=== PATIENT | male | born 1960 | race African-American/Black ===

== ENCOUNTER 2016-03-05 08:50 | Inpatient (IN) | payer OTHER ==
--- NOTE | 2016-03-05 09:11 | HP ---
CIWA Score - CIWA Score Nausea/Vomitin-Mild Nausea/No Vomiting Muscle Tremors: 4-Moderate,w/Arms Extend Anxiety: 4-Mod. Anxious/Guarded Agitation: 1-Slight > Activity Paroxysmal Sweats: 1-Minimal Palms Moist Orientation: 0-Oriented Tacttile Disturbances: 1-Very Mild Itch/Numbness Auditory Disturbances: 1-Very Mild Visual Disturbances: 1-Very Mild Sensitivity Headache: 1-Very Mild CIWA-Ar Total Score: 15 Admission ROS BHS - HPI Chief Complaint: I messed up, I started drinking again, I want help. Allergies/Adverse Reactions: Allergies Allergy/AdvReac Type Severity Reaction Status Date / Time No Known Allergies Allergy Verified 01/24/16 10:54 History of Present Illness: 55 yo gentleman here for detox from alcohol - last her 01/24/16 but relapsed. Denies seizures. Interested in pursuing [facility] after detox. Lost seroquel bottles a week ago. Exam Limitations: Clinical Condition - Ebola screening Have you traveled outside of the country in the last 21 days: No Have you had contact with anyone from an Ebola affected area: No Do you have a fever: No - Review of Systems Constitutional: Loss of Appetite, Changes in sleep EENT: reports: No Symptoms Reported Respiratory: reports: No Symptoms reported Cardiac: reports: No Symptoms Reported GI: reports: Diarrhea, Nausea : reports: Frequency Musculoskeletal: reports: No Symptoms Reported Integumentary: reports: Other (right tibia scabbed abrasion due to falling a few days ago) Neuro: reports: Headache, Tremors Endocrine: reports: No Symptoms Reported Hematology: reports: No Symptoms Reported Psychiatric: reports: Judgement Intact, Mood/Affect Appropiate, Orientated x3, Anxious Other Systems: Reviewed and Negative Patient History - Patient Medical History Hx Anemia: No Hx Asthma: No Hx Chronic Obstructive Pulmonary Disease (COPD): No Hx Cancer: No Hx Cardiac Disorders: No Hx Congestive Heart Failure: No Hx Hypertension: No Hx Hypercholesterolemia: No Hx Pacemaker: No HX Cerebrovascular Accident: No Hx Seizures: No Hx Dementia: No Hx Diabetes: No Hx Gastrointestinal Disorders: No Hx Liver Disease: No Hx Genitourinary Disorders: No Hx Sexually Transmitted Disorders: No Hx Renal Disease (ESRD): No Hx Thyroid Disease: No Hx Human Immunodeficiency Virus (HIV): No Hx Hepatitis C: No Hx Depression: Yes (out of meds x 1 week) Hx Suicide Attempt: No Hx Bipolar Disorder: Yes Hx Schizophrenia: No - Patient Surgical History Past Surgical History: No Hx Neurologic Surgery: No Hx Cataract Extraction: No Hx Cardiac Surgery: No Hx Lung Surgery: No Hx Breast Surgery: No Hx Breast Biopsy: No Hx Abdominal Surgery: No Hx Appendectomy: No Hx Cholecystectomy: No Hx Genitourinary Surgery: No Hx Section: No Hx Orthopedic Surgery: No Hx Hysterectomy: No Anesthesia Reaction: No - PPD History Previous Implant?: Yes Documented Results: Negative w/proof Implanted On Prior [facility] Admission?: No Date: 05/18/15 Results: 0 mm PPD to be Administered?: No - Reproductive History Patient is a Female of Child Bearing Age (11 -55 yrs old): No (male) - Smoking Cessation Smoking history: Current every day smoker Have you smoked in the past 12 months: Yes Aproximately how many cigarettes per day: 5 Cigars Per Day: 0 Hx Chewing Tobacco Use: No Initiated information on smoking cessation: Yes 'Breaking Loose' booklet given: 03/05/16 (given on floor) - Substance & Tx. History Hx Alcohol Use: Yes Hx Substance Use: Yes Substance Use Type: Alcohol, Cocaine Hx Substance Use Treatment: Yes (detox, rehab) - Substances Abused Alcohol Route: Oral Frequency: Daily Amount used: six 40oz beers Age of first use: 16 Date of Last Use: 03/05/16 Cocaine Route: Inhalation Frequency: Daily Amount used: $50 Age of first use: 49 Date of Last Use: 03/05/16 Family Disease History - Family Disease History Family Disease History: Heart Disease: Father (ALCOHOL,), CA: Mother ( ALCOHOL,), Other: Father, Mother, Brother (ALCOHOL,DSA,, AIDS), Sister (, ANEURYSM, AIDS) Admission Physical Exam BHS - Vital Signs Vital Signs: BP 134/80 Pulse 67 Resp 18 Temp 98 - Physical General Appearance: Yes: Nourished, Appropriately Dressed, Mild Distress, Anxious HEENTM: Yes: EOMI, Normal ENT Inspection, Normocephalic, Normal Voice, Other ( no teeth) Respiratory: Yes: Normal Breath Sounds, No Respiratory Distress Neck: Yes: No masses,lesions,Nodules, Supple Breast: Yes: Breast Exam Deferred Cardiology: Yes: Regular Rhythm, Regular Rate Abdominal: Yes: Soft Genitourinary: Yes: Frequency Back: Yes: Normal Inspection Musculoskeletal: Yes: full range of Motion, Gait Steady Extremities: Yes: Normal Inspection, Normal Range of Motion Neurological: Yes: Fully Oriented, Alert, Motor Strength 5/5, Normal Mood/Affect , Normal Response Integumentary: Yes: Normal Color, Warm, Other (right tibia with 4 inch dry scabbed abrasion) Lymphatic: Yes: Within Normal Limits - Diagnostic (1) Alcohol dependence with uncomplicated withdrawal Current Visit: Yes Status: Chronic (2) Cocaine dependence Current Visit: Yes Status: Chronic Qualifiers: Substance use status: uncomplicated Qualified Code(s): F14.20 - Cocaine dependence, uncomplicated (3) Nicotine dependence Current Visit: Yes Status: Chronic Qualifiers: Nicotine product type: cigarettes Substance use status: uncomplicated Qualified Code(s): F17.210 - Nicotine dependence, cigarettes, uncomplicated Cleared for Admission S - Detox or Rehab [facility] Level of Care: Medically Managed Detox Regimen/Protocol: Librium S Breath Alcohol Content Breath Alcohol Content: 0
[2016-03-05 09:19] VITALS: BMI 24.4
[2016-03-05] MEDS ORDERED: guaiFENesin/D-METHORPHAN HB 10 ML UNIT-DOSE CUPS PO PRN (09:24)
[2016-03-05] MEDS ORDERED: chlordiazePOXIDE HCL 25 MG CAPSULE PO PRN (09:24)
[2016-03-05] MEDS ORDERED: MAGNESIUM HYDROX 2400MG/30ML ORAL SUSPENSION 30 ML CUP PO PRN (09:24)
[2016-03-05] MEDS ORDERED: ACETAMINOPHEN 325 MG TABLET (FP) PO PRN (09:24)
[2016-03-05] MEDS ORDERED: P-EPHED 60MG/TRIPROLIDI 2.5MG TABLET PO PRN (09:24)
[2016-03-05] MEDS ORDERED: IBUPROFEN 400 MG TABLET (FP) PO PRN (09:24)
[2016-03-05] MEDS ORDERED: MAG HYDROX/AL HYDROX/SIMETH 30 ML UNIT-DOSE CUP PO PRN (09:24)
[2016-03-05] MEDS ORDERED: MAGNESIUM CITRATE 300 ML BOTTLE PO PRN (09:24)
[2016-03-05] MEDS ORDERED: MENTHOL/PHENOL 1 EACH UD MM PRN (09:24)
[2016-03-05] MEDS ORDERED: LOPERAMIDE HCL 2 MG CAPSULE PO PRN (09:24)
[2016-03-05] MEDS ORDERED: hydrOXYzine PAMOATE 50 MG CAPSULE (FP) PO PRN (09:24)
[2016-03-05] MEDS ORDERED: chlordiazePOXIDE HCL 25 MG CAPSULE PO ONE (10:30)
[2016-03-05] MEDS: chlordiazePOXIDE HCL 25 MG CAPSULE PO SCH ×3 (11:35→22:09)
[2016-03-05] MEDS: PRENATAL VITAMINS W/ FOLIC ACID TABLET (FP) PO SCH (11:35)
[2016-03-05 13:38] LABS: URINE APPEARANCE CLEAR; URINE BILIRUBIN NEGATIVE (NEGATIVE); URINE COLOR LTYELLOW; URINE GLUCOSE (UA) NEGATIVE (NEGATIVE); URINE KETONE NEGATIVE (NEGATIVE); URINE LEUK ESTERASE NEGATIVE (NEGATIVE); URINE NITRITE NEGATIVE (NEGATIVE); URINE PROTEIN NEGATIVE (NEGATIVE); URINE UROBILINOGEN NEGATIVE E.U./dl (0.2-1.0)
[2016-03-05 13:43] LABS: URINE BLOOD 1+ (NEGATIVE)
[2016-03-05 13:47] LABS: URINE MUCUS RARE; URINE RBC <1 /hpf (0-3); URINE WBC 2 /hpf (3-5)
[2016-03-05] MEDS ORDERED: diphenhydrAMINE HCL 50 MG CAPSULE PO PRN (22:00)
[2016-03-05] MEDS: THIAMINE HCL 100 MG TABLET (FP) PO SCH (22:09)
[2016-03-06] MEDS: chlordiazePOXIDE HCL 25 MG CAPSULE PO SCH ×4 (05:48→22:13)
--- NOTE | 2016-03-06 09:46 | EKG ---
Test Reason : Blood Pressure : / mmHG Vent. Rate : 066 BPM Atrial Rate : 066 BPM P-R Int : 148 ms QRS Dur : 102 ms QT Int : 386 ms P-R-T Axes : 074 082 062 degrees QTc Int : 404 ms SINUS RHYTHM WITH PREMATURE ATRIAL COMPLEXES IN A PATTERN OF BIGEMINY NO PREVIOUS ECGS AVAILABLE Confirmed by CAMRYN DICKERSON MD ([id number]) on 03/06/2016 9:46:36 AM Referred By: Confirmed By:CAMRYN DICKERSON MD
[2016-03-06] MEDS: PRENATAL VITAMINS W/ FOLIC ACID TABLET (FP) PO SCH (10:07)
[2016-03-06 10:20] LABS: MCHC 31.4 g/dl (32.0-35.9); MEAN CELL VOLUME 82.9 fl (80-96); PLATELET COUNT 264 K/MM3 (134-434); RDW 15.1 % (11.9-15.9); WHITE BLOOD COUNT 5.6 K/mm3 (4.0-10.0)
[2016-03-06 10:49] LABS: ALK PHOS 67 U/L (45-117); ANION GAP 11 (8-16); BILIRUBIN,TOTAL 0.7 mg/dL (0.2-1.0); CALCIUM 9.1 mg/dL (8.5-10.1); CO2 26 mmol/L (21-32); GLUCOSE,RANDOM 94 mg/dL (74-106); SGOT/AST 11 U/L (15-37); SGPT/ALT 16 U/L (12-78); TOT PROT 7.3 g/dl (6.4-8.2)
[2016-03-06 12:26] LABS: HIV 1 & 2 AB NEGATIVE; HIV 1 AGp24 NEGATIVE
--- NOTE | 2016-03-06 12:48 | PN ---
S CIWA - CIWA Score Nausea/Vomitin-Mild Nausea/No Vomiting Muscle Tremors: 4-Moderate,w/Arms Extend Anxiety: 4-Mod. Anxious/Guarded Agitation: 3 Paroxysmal Sweats: No Perspiration Orientation: 0-Oriented Tacttile Disturbances: 1-Very Mild Itch/Numbness Auditory Disturbances: 0-None Visual Disturbances: 0-None Headache: 2-Mild CIWA-Ar Total Score: 15 S Progress Note (SOAP) Subjective: Anxious, restless, interrupted sleep, nausea, sweating (wants seroquel 100mg for sleep, agrees to take ambien 10mg tonight until seen by psychiatrist) Objective: 03/06/16 12:44 Last Vital Signs Temp Pulse Resp BP Pulse Ox 96.7 F L 61 18 145/87 03/06/16 09:39 03/06/16 09:39 03/06/16 09:39 03/06/16 09:39 Laboratory Tests 03/05/16 03/06/16 03/06/16 10:10 07:20 07:20 WBC 5.6 RBC 5.08 Hgb 13.2 D Hct 42.1 MCV 82.9 MCHC 31.4 L RDW 15.1 Plt Count 264 MPV 9.0 Sodium 141 Potassium 3.8 Chloride 104 Carbon Dioxide 26 Anion Gap 11 BUN 9 D Creatinine 1.0 Creat Clearance w eGFR > 60 Random Glucose 94 Calcium 9.1 Total Bilirubin 0.7 D AST 11 L D ALT 16 Alkaline Phosphatase 67 Total Protein 7.3 Albumin 4.0 D Urine Color Ltyellow Urine Appearance Clear Urine pH 5.0 Ur Specific [place] 1.009 Urine Protein Negative Urine Glucose (UA) Negative Urine Ketones Negative Urine Blood 1+ H Urine Nitrite Negative Urine Bilirubin Negative Urine Urobilinogen Negative Ur Leukocyte Esterase Negative Urine RBC <1 Urine WBC 2 Ur Epithelial Cells Rare Urine Mucus Rare HIV 1&2 Antibody Screen HIV P24 Antigen 03/06/16 07:20 WBC RBC Hgb Hct MCV MCHC RDW Plt Count MPV Sodium Potassium Chloride Carbon Dioxide Anion Gap BUN Creatinine Creat Clearance w eGFR Random Glucose Calcium Total Bilirubin AST ALT Alkaline Phosphatase Total Protein Albumin Urine Color Urine Appearance Urine pH Ur Specific [place] Urine Protein Urine Glucose (UA) Urine Ketones Urine Blood Urine Nitrite Urine Bilirubin Urine Urobilinogen Ur Leukocyte Esterase Urine RBC Urine WBC Ur Epithelial Cells Urine Mucus HIV 1&2 Antibody Screen Negative HIV P24 Antigen Negative Labs noted: UA 1+ blood Assessment: 03/06/16 12:46 Withdrawal symptoms Interrupted sleep Insomnia: patient request seroquel 100mg qhs Noted with Hematuria Plan: Continue detox Ambien 10mg x 1 dose tonight for interrupted sleep Insomnia: psychiatry consult for seroquel 100mg Hematuria: encouraged to drink lots of water, repeat UA
[2016-03-06] MEDS ORDERED: ZOLPIDEM TARTRATE 10 MG TABLET (PARK CARE ONLY) PO ONE (22:00)
[2016-03-06] MEDS: THIAMINE HCL 100 MG TABLET (FP) PO SCH (22:13)
[2016-03-07] MEDS: chlordiazePOXIDE HCL 25 MG CAPSULE PO SCH (05:27)
[2016-03-07] MEDS: PRENATAL VITAMINS W/ FOLIC ACID TABLET (FP) PO SCH (10:08)
[2016-03-07] MEDS: chlordiazePOXIDE 5 MG CAPSULE PO SCH ×3 (10:08→22:26)
--- NOTE | 2016-03-07 11:02 | PN ---
S CIWA - CIWA Score Nausea/Vomitin-No Nausea/No Vomiting Muscle Tremors: 3 Anxiety: 4-Mod. Anxious/Guarded Agitation: 3 Paroxysmal Sweats: 3 Orientation: 0-Oriented Tacttile Disturbances: 0-None Auditory Disturbances: 0-None Visual Disturbances: 0-None Headache: 0-None Present CIWA-Ar Total Score: 13 BHS Progress Note (SOAP) Subjective: ANXIETY,TREMORS,SWEATING,INTERRUPTED SLEEP,RESTLESS Objective: 03/07/16 11:01 Vital Signs - 8 hr 03/07/16 03/07/16 05:59 09:33 Temperature 96.1 F L 96.7 F L Pulse Rate 54 L 62 Respiratory 18 18 Rate Blood Pressure 133/87 135/88 Laboratory Tests 03/05/16 03/06/16 03/06/16 10:10 07:20 07:20 WBC 5.6 RBC 5.08 Hgb 13.2 D Hct 42.1 MCV 82.9 MCHC 31.4 L RDW 15.1 Plt Count 264 MPV 9.0 Sodium 141 Potassium 3.8 Chloride 104 Carbon Dioxide 26 Anion Gap 11 BUN 9 D Creatinine 1.0 Creat Clearance w eGFR > 60 Random Glucose 94 Calcium 9.1 Total Bilirubin 0.7 D AST 11 L D ALT 16 Alkaline Phosphatase 67 Total Protein 7.3 Albumin 4.0 D Urine Color Ltyellow Urine Appearance Clear Urine pH 5.0 Ur Specific [place] 1.009 Urine Protein Negative Urine Glucose (UA) Negative Urine Ketones Negative Urine Blood 1+ H Urine Nitrite Negative Urine Bilirubin Negative Urine Urobilinogen Negative Ur Leukocyte Esterase Negative Urine RBC <1 Urine WBC 2 Ur Epithelial Cells Rare Urine Mucus Rare RPR Titer HIV 1&2 Antibody Screen HIV P24 Antigen 03/06/16 03/06/16 07:20 07:20 WBC RBC Hgb Hct MCV MCHC RDW Plt Count MPV Sodium Potassium Chloride Carbon Dioxide Anion Gap BUN Creatinine Creat Clearance w eGFR Random Glucose Calcium Total Bilirubin AST ALT Alkaline Phosphatase Total Protein Albumin Urine Color Urine Appearance Urine pH Ur Specific [place] Urine Protein Urine Glucose (UA) Urine Ketones Urine Blood Urine Nitrite Urine Bilirubin Urine Urobilinogen Ur Leukocyte Esterase Urine RBC Urine WBC Ur Epithelial Cells Urine Mucus RPR Titer Nonreactive HIV 1&2 Antibody Screen Negative HIV P24 Antigen Negative LABS NOTED Assessment: 03/07/16 11:02 WITHDRAWAL SX. Plan: CONTINUE DETOX
--- NOTE | 2016-03-07 14:12 | CONSULT ---
[facility] Psychiatric Consult - Data Date of interview: 03/07/16 Admission source: [facility] Identifying data: New admission to [facility] for this 55 y/o AA male seeking detox treatment for alcohol and cocaine dependence.Patient is single,a father of two,homeless,unemployed and deprived of any source of income. Substance Abuse History: - Smoking Cessation. Smoking history: Current every day smoker. Have you smoked in the past 12 months: Yes. Aproximately how many cigarettes per day: 5. Cigars Per Day: 0. Hx Chewing Tobacco Use: No. Initiated information on smoking cessation: Yes. 'Breaking Loose' booklet given : 03/05/16 (given on floor). - Substance & Tx. History. Hx Alcohol Use: Yes. Hx Substance Use: Yes. Substance Use Type: Alcohol, Cocaine. Hx Substance Use Treatment: Yes (detox, rehab). - Substances Abused. Alcohol. Route: Oral. Frequency: Daily. Amount used: six 40oz beers. Age of first use: 16. Date of Last Use: 03/05/16. Cocaine. Route: Inhalation. Frequency: Daily. Amount used: $50. Age of first use: 49. Date of Last Use: 03/05/16. Discussed with patient in this interview.He aknowleges this pattern of substance use. Medical History: Significant for hypertension and abdominal hernia. Psychiatric History: No reported history of psychiatric hospitalizations.No OPD care provider.Mr Argueta states that he is against " taking psychiatric " medications.Patient made it clear that he " does not want anything from here " with the exception of detox medications.No history of suicide attempts.Patient is a hostile,marginally and irritable historian. Physical/Sexual Abuse/Trauma History: No history. Mental Status Exam - Mental Status Exam Alert and Oriented to: Time, Place, Person Cognitive Function: Good Patient Appearance: Well Groomed Mood: Irritable Affect: Normal Range Patient Behavior: Fatigued, Guarded, Cooperative (superficially) Speech Pattern: Clear Voice Loudness: Normal Thought Process: Goal Oriented Thought Disorder: Not Present Hallucinations: Denies Suicidal Ideation: Denies Homicidal Ideation: Denies Insight/Judgement: Poor Sleep: Well Appetite: Good Muscle strength/Tone: Normal Gait/Station: Normal Psychiatric Findings - Problem List (Christine 1, 2,3) (1) Alcohol dependence with uncomplicated withdrawal Current Visit: Yes Status: Acute (2) Cocaine dependence Current Visit: Yes Status: Acute Qualifiers: Substance use status: uncomplicated Qualified Code(s): F14.20 - Cocaine dependence, uncomplicated (3) Nicotine dependence Current Visit: Yes Status: Acute Qualifiers: Nicotine product type: cigarettes Substance use status: uncomplicated Qualified Code(s): F17.210 - Nicotine dependence, cigarettes, uncomplicated (4) Drug-induced mood disorder Current Visit: Yes Status: Chronic (5) History of hypertension Current Visit: No Status: Suspected - Initial Treatment Plan Initial Treatment Plan: Psychoeducation.Detoxification.Observation.
--- NOTE | 2016-03-07 14:13 | CONSULT ---
[facility] Psychiatric Consult - Data Date of interview: 03/07/16 Identifying data: Readmission to [facility] for this 54 y/o AA male seeking detox treatment for alcohol and cocaine dependence.Patient is single,a father of two (lost one daughter),homeless,unemployed and deprived of any source of income. Psychiatric History: Patient denies history of psychiatric hospitalizations.No current affiliation with a OPD care provider.Mr Argueta gets scripts for seroquel from detox/rehab facilities.He reports chronic insomnia.No history of suicide attempts.
[2016-03-07 17:26] VITALS: BP 115/58; PULSE 59; TEMP 97.5
[2016-03-07] MEDS ORDERED: ZOLPIDEM TARTRATE 10 MG TABLET (PARK CARE ONLY) PO PRN (22:00)
[2016-03-07] MEDS: THIAMINE HCL 100 MG TABLET (FP) PO SCH (22:26)
--- NOTE | 2016-03-07 23:46 | DS ---
[facility] Detox Discharge Summary Admission Date: 03/05/16 Discharge Date: 03/07/16 - History Present History: Alcohol Dependence Additional Comments: patient insists to leave the unit without apparent reason - Physical Exam Results Vital Signs: Vital Signs Temperature 97.5 F L 03/07/16 17:25 Pulse Rate 59 L 03/07/16 17:25 Respiratory Rate 18 03/07/16 17:25 Blood Pressure 115/58 03/07/16 17:25 O2 Sat by Pulse Oximetry (%) Pertinent Admission Physical Exam Findings: withdrawal sx Laboratory Last Values WBC 5.6 K/mm3 (4.0-10.0) 03/06/16 07:20 RBC 5.08 M/mm3 (4.00-5.60) 03/06/16 07:20 Hgb 13.2 GM/dL (11.7-16.9) D 03/06/16 07:20 Hct 42.1 % (35.4-49) 03/06/16 07:20 MCV 82.9 fl (80-96) 03/06/16 07:20 MCHC 31.4 g/dl (32.0-35.9) L 03/06/16 07:20 RDW 15.1 % (11.9-15.9) 03/06/16 07:20 Plt Count 264 K/MM3 (134-434) 03/06/16 07:20 MPV 9.0 fl (7.5-11.1) 03/06/16 07:20 Sodium 141 mmol/L (136-145) 03/06/16 07:20 Potassium 3.8 mmol/L (3.5-5.1) 03/06/16 07:20 Chloride 104 mmol/L (98-107) 03/06/16 07:20 Carbon Dioxide 26 mmol/L (21-32) 03/06/16 07:20 Anion Gap 11 (8-16) 03/06/16 07:20 BUN 9 mg/dL (7-18) D 03/06/16 07:20 Creatinine 1.0 mg/dL (0.7-1.3) 03/06/16 07:20 Creat Clearance w eGFR > 60 (>60) 03/06/16 07:20 Random Glucose 94 mg/dL (74-106) 03/06/16 07:20 Calcium 9.1 mg/dL (8.5-10.1) 03/06/16 07:20 Total Bilirubin 0.7 mg/dL (0.2-1.0) D 03/06/16 07:20 AST 11 U/L (15-37) L D 03/06/16 07:20 ALT 16 U/L (12-78) 03/06/16 07:20 Alkaline Phosphatase 67 U/L (45-117) 03/06/16 07:20 Total Protein 7.3 g/dl (6.4-8.2) 03/06/16 07:20 Albumin 4.0 g/dl (3.4-5.0) D 03/06/16 07:20 Urine Color Ltyellow 03/05/16 10:10 Urine Appearance Clear 03/05/16 10:10 Urine pH 5.0 (5.0-8.0) 03/05/16 10:10 Ur Specific [place] 1.009 (1.001-1.035) 03/05/16 10:10 Urine Protein Negative (NEGATIVE) 03/05/16 10:10 Urine Glucose (UA) Negative (NEGATIVE) 03/05/16 10:10 Urine Ketones Negative (NEGATIVE) 03/05/16 10:10 Urine Blood 1+ (NEGATIVE) H 03/05/16 10:10 Urine Nitrite Negative (NEGATIVE) 03/05/16 10:10 Urine Bilirubin Negative (NEGATIVE) 03/05/16 10:10 Urine Urobilinogen Negative E.U./dl (0.2-1.0) 03/05/16 10:10 Ur Leukocyte Esterase Negative (NEGATIVE) 03/05/16 10:10 Urine RBC <1 /hpf (0-3) 03/05/16 10:10 Urine WBC 2 /hpf (3-5) 03/05/16 10:10 Ur Epithelial Cells Rare /hpf (FEW) 03/05/16 10:10 Urine Mucus Rare 03/05/16 10:10 RPR Titer Nonreactive (NONREACTIVE) 03/06/16 07:20 HIV 1&2 Antibody Screen Negative 03/06/16 07:20 HIV P24 Antigen Negative 03/06/16 07:20 lab noted - Treatment Hospital Course: Detox Protocol Followed, Responded well - Medication Discharge Medications: Ambulatory Orders Quetiapine Fumarate [Seroquel] 100 tab PO HS #30 tablet 10/05/15 - Diagnosis (1) Alcohol dependence with uncomplicated withdrawal Status: Acute (2) Nicotine dependence Status: Acute Qualifiers: Nicotine product type: cigarettes Substance use status: in withdrawal Qualified Code(s): F17.213 - Nicotine dependence, cigarettes, with withdrawal (3) Weight loss Status: Acute - AMA Did Patient Leave Against Medical Advice: Yes
[2016-03-08] MEDS ORDERED: chlordiazePOXIDE HCL 10 MG CAPSULE PO SCH (11:00)
== END 2016-03-07 23:18 | disposition left against medical advice (07) | DRG 770 ==
LOC: YASAS 08:50 → Y3N 10:01
PROVIDERS: ADMIT Internal Medicine; ATTEND Internal Medicine
PROC: HZ2ZZZZ Detoxification Services for Substance Abuse Treatment (ICD-10-PCS; principal; 2016-03-07)
DX: F10.230 Alcohol dependence with withdrawal, uncomplicated (principal); F14.20 Cocaine dependence, uncomplicated; F17.213 Nicotine dependence, cigarettes, with withdrawal; F19.24 Other psychoactive substance dependence with psychoactive substance-induced mood disorder; R63.4 Abnormal weight loss; Z68.24 Body mass index [BMI] 24.0-24.9, adult
CPT/HCPCS: 36415; 80053; 81003; 81015; 85027; 86593; 87389; 93005; 93010

== ENCOUNTER 2016-06-01 11:58 | Inpatient (IN) | payer OTHER ==
[2016-06-01 17:38] VITALS: BMI 23.3
--- NOTE | 2016-06-01 19:39 | HP ---
CIWA Score - CIWA Score Nausea/Vomitin-Mild Nausea/No Vomiting Muscle Tremors: 4-Moderate,w/Arms Extend Anxiety: 4-Mod. Anxious/Guarded Agitation: 4-Moderately Restless Paroxysmal Sweats: 1-Minimal Palms Moist Orientation: 1-Uncertain about Date Tacttile Disturbances: 0-None Auditory Disturbances: 0-None Visual Disturbances: 0-None Headache: 1-Very Mild CIWA-Ar Total Score: 16 Admission ROS BHS - HPI Chief Complaint: withdrawal sx Allergies/Adverse Reactions: Allergies Allergy/AdvReac Type Severity Reaction Status Date / Time No Known Allergies Allergy Verified 06/02/16 00:59 History of Present Illness: 55 years old male with long history of alcohol cocaine nicotine dependence has umbilical hernia x 15 years, denies consequence, weight loss, has bipolar ii is admitted to detox Exam Limitations: No Limitations - Ebola screening Have you traveled outside of the country in the last 21 days: No Have you had contact with anyone from an Ebola affected area: No Have you been sick,other than usual withdrawal symptoms: No Do you have a fever: No - Review of Systems Constitutional: Chills, Loss of Appetite, Changes in sleep, Unintentional Wgt. Loss, Unexplained wgt Loss EENT: reports: Dental Problems (upper and lower denture missing) Respiratory: reports: No Symptoms reported Cardiac: reports: No Symptoms Reported GI: reports: Nausea, Poor Appetite, Poor Fluid Intake, Abdominal cramping : reports: No Symptoms Reported Musculoskeletal: reports: Back Pain (long weight lifting) Integumentary: reports: No Symptoms Reported Neuro: reports: Tremors Endocrine: reports: No Symptoms Reported Hematology: reports: No Symptoms Reported Psychiatric: reports: Judgement Intact, Depressed Other Systems: Reviewed and Negative Patient History - Patient Medical History Hx Anemia: No Hx Asthma: No Hx Chronic Obstructive Pulmonary Disease (COPD): No Hx Cancer: No Hx Cardiac Disorders: No Hx Congestive Heart Failure: No Hx Hypertension: No Hx Hypercholesterolemia: No Hx Pacemaker: No HX Cerebrovascular Accident: No Hx Seizures: No Hx Dementia: No Hx Diabetes: No Hx Gastrointestinal Disorders: No Hx Liver Disease: No Hx Genitourinary Disorders: No Hx Sexually Transmitted Disorders: No Hx Renal Disease (ESRD): No Hx Thyroid Disease: No Hx Human Immunodeficiency Virus (HIV): No Hx Hepatitis C: No Hx Depression: No Hx Suicide Attempt: No Hx Bipolar Disorder: Yes Hx Schizophrenia: No - Patient Surgical History Past Surgical History: No Hx Neurologic Surgery: No Hx Cataract Extraction: No Hx Cardiac Surgery: No Hx Lung Surgery: No Hx Breast Surgery: No Hx Breast Biopsy: No Hx Abdominal Surgery: No Hx Appendectomy: No Hx Cholecystectomy: No Hx Genitourinary Surgery: No Hx Orthopedic Surgery: No - PPD History Previous Implant?: Yes Documented Results: Negative w/o proof [facility]ed [facility]mission?: Yes Date: 05/18/15 Results: 0 mm PPD to be Administered?: Yes - Smoking Cessation Smoking history: Current every day smoker Have you smoked in the past 12 months: Yes Aproximately how many cigarettes per day: 5 Cigars Per Day: 0 Hx Chewing Tobacco Use: No Initiated information on smoking cessation: Yes 'Breaking Loose' booklet given: 06/01/16 - Substance & Tx. History Hx Alcohol Use: Yes Hx Substance Use: No Substance Use Type: Alcohol, Cocaine Hx Substance Use Treatment: Yes - Substances Abused Alcohol Route: Oral Frequency: Daily Amount used: Beer 4x 40oz, Vodka 1 pint Age of first use: 15 Date of Last Use: 06/01/16 Cocaine Route: Inhalation Frequency: Daily Amount used: $30- $50 Age of first use: 49 Date of Last Use: 06/01/16 Family Disease History - Family Disease History Family Disease History: Heart Disease: Father (ALCOHOL,), CA: Mother ( ALCOHOL,), Other: Father, Mother, Brother (ALCOHOL,DSA,, AIDS), Sister (, ANEURYSM, AIDS) Admission Physical Exam S - Vital Signs Vital Signs: Vital Signs - 24 hr 06/01/16 17:36 Temperature 97.8 F Pulse Rate 77 Respiratory 18 Rate Blood Pressure 130/82 - Physical General Appearance: Yes: Appropriately Dressed, Mild Distress, Moderate Distress , Thin, Tremorous, Irritable, Sweating, Anxious HEENTM: Yes: Hearing grossly Normal, Normal ENT Inspection, Normocephalic, Normal Voice Respiratory: Yes: Chest Non-Tender, Lungs Clear, Normal Breath Sounds, No Respiratory Distress, No Accessory Muscle Use Neck: Yes: Supple, Trachea in good position Breast: Yes: Breasts Symetrical Cardiology: Yes: Regular Rhythm, Regular Rate, S1, S2 Abdominal: Yes: Non Tender, Soft Genitourinary: Yes: Within Normal Limits Back: Yes: Normal Inspection Musculoskeletal: Yes: full range of Motion, Gait Steady, Back pain Extremities: Yes: Normal Inspection, Normal Range of Motion, Non-Tender, Tremors Neurological: Yes: Alert, Motor Strength 5/5, Normal Response, Depressed Affect Integumentary: Yes: Warm Lymphatic: Yes: Within Normal Limits - Diagnostic (1) Alcohol dependence with uncomplicated withdrawal Current Visit: Yes Status: Acute (2) Nicotine dependence Current Visit: Yes Status: Acute Qualifiers: Nicotine product type: cigarettes Substance use status: in withdrawal Qualified Code(s): F17.213 - Nicotine dependence, cigarettes, with withdrawal (3) Weight loss Current Visit: Yes Status: Acute (4) Bipolar II disorder Current Visit: Yes Status: Suspected Cleared for Admission [facility] - Detox or Rehab [facility] Level of Care: Medically Managed Detox Regimen/Protocol: Librium [facility] Breath Alcohol Content Breath Alcohol Content: 0 Urine Drug Screen - Results Drug Screen Negative: No Urine Drug Screen Results: HERMINIO-Cocaine, BZO-Benzodiazepines
[2016-06-01] MEDS ORDERED: P-EPHED 60MG/TRIPROLIDI 2.5MG TABLET PO PRN (19:49)
[2016-06-01] MEDS ORDERED: MENTHOL/PHENOL 1 EACH UD MM PRN (19:49)
[2016-06-01] MEDS ORDERED: guaiFENesin/D-METHORPHAN HB 10 ML UNIT-DOSE CUPS PO PRN (19:49)
[2016-06-01] MEDS ORDERED: NICOTINE 14 MG/24 HOURS TOPICAL PATCH TD PRN (19:49)
[2016-06-01] MEDS ORDERED: LOPERAMIDE HCL 2 MG CAPSULE PO PRN (19:49)
[2016-06-01] MEDS ORDERED: MAGNESIUM CITRATE 300 ML BOTTLE PO PRN (19:49)
[2016-06-01] MEDS ORDERED: MAG HYDROX/AL HYDROX/SIMETH 30 ML UNIT-DOSE CUP PO PRN (19:49)
[2016-06-01] MEDS ORDERED: MAGNESIUM HYDROX 2400MG/30ML ORAL SUSPENSION 30 ML CUP PO PRN (19:49)
[2016-06-01] MEDS ORDERED: NICOTINE POLACRILEX 2 MG GUM BC PRN (19:49)
[2016-06-01] MEDS ORDERED: ACETAMINOPHEN 325 MG TABLET (FP) PO PRN (19:49)
[2016-06-01] MEDS ORDERED: IBUPROFEN 400 MG TABLET (FP) PO PRN (19:49)
[2016-06-01] MEDS ORDERED: chlordiazePOXIDE HCL 25 MG CAPSULE PO PRN (19:49)
[2016-06-01] MEDS ORDERED: hydrOXYzine PAMOATE 50 MG CAPSULE (FP) PO PRN (19:49)
[2016-06-01 21:36] LABS: URINE APPEARANCE CLEAR; URINE BILIRUBIN NEGATIVE (NEGATIVE); URINE COLOR YELLOW; URINE GLUCOSE (UA) NEGATIVE (NEGATIVE); URINE KETONE NEGATIVE (NEGATIVE); URINE NITRITE NEGATIVE (NEGATIVE); URINE PROTEIN NEGATIVE (NEGATIVE); URINE UROBILINOGEN NEGATIVE E.U./dl (0.2-1.0)
[2016-06-01 21:40] LABS: URINE BLOOD 1+ (NEGATIVE); URINE LEUK ESTERASE 1+ (NEGATIVE)
[2016-06-01 22:04] LABS: URINE MUCUS RARE; URINE RBC 2 /hpf (0-3); URINE WBC 11 /hpf (3-5)
[2016-06-01] MEDS: THIAMINE HCL 100 MG TABLET (FP) PO SCH (22:13)
[2016-06-01] MEDS: chlordiazePOXIDE HCL 25 MG CAPSULE PO SCH (22:15)
[2016-06-01] MEDS: diphenhydrAMINE HCL 50 MG CAPSULE PO PRN (22:15)
[2016-06-02] MEDS: chlordiazePOXIDE HCL 25 MG CAPSULE PO SCH ×4 (05:50→22:25)
--- NOTE | 2016-06-02 09:32 | CONSULT ---
[facility] Psychiatric Consult - Data Date of interview: 06/02/16 Admission source: [facility] Identifying data: This is 55 years old male with no psychiatric hospitalization history intoxicated with: Alcohol, Cocaine and Nicotine Substance Abuse History: Denies Medical History: Weight loss, Syncope history, HTN, Psychiatric History: PATIENT REPROTS HISTORY OF BIPOLAR DISORDER, DENIES PSYCHIATRIOC HOSPITALIZATION HIOSTORY, REPORTS TAKING PRIOR TO ADMISSION: SEROQUEL 100MG PO QHS Physical/Sexual Abuse/Trauma History: Denies Additional Comment: SEROQUEL 100MG PO QHS Mental Status Exam - Mental Status Exam Alert and Oriented to: Person Patient Appearance: Unkempt Mood: Sad Affect: Flat Patient Behavior: Sedated Speech Pattern: Delayed Voice Loudness: Mildly Soft/Quiet Thought Process: Circumstantial Thought Disorder: Being Controlled Hallucinations: Denies Suicidal Ideation: Denies Homicidal Ideation: Denies Insight/Judgement: Fair Sleep: Difficulty falling asleep Appetite: Weight loss Muscle strength/Tone: Mild Hypotonicity Gait/Station: Shuffling Additional Comments: SEROQUEL 100MG PO QHS Psychiatric Findings - Problem List ([place] 1, 2,3) (1) Alcohol dependence with uncomplicated withdrawal Current Visit: Yes Status: Acute (2) Nicotine dependence Current Visit: Yes Status: Acute Qualifiers: Nicotine product type: cigarettes Substance use status: in withdrawal Qualified Code(s): F17.213 - Nicotine dependence, cigarettes, with withdrawal (3) Weight loss Current Visit: Yes Status: Acute (4) Cocaine dependence Current Visit: No Status: Acute Qualifiers: Substance use status: uncomplicated Qualified Code(s): F14.20 - Cocaine dependence, uncomplicated (5) Substance or medication-induced sleep disorder, insomnia type Current Visit: No Status: Acute (6) Drug-induced mood disorder Current Visit: No Status: Chronic (7) Bipolar disorder Current Visit: No Status: Suspected Comment: Historical diagnosis. - Initial Treatment Plan Initial Treatment Plan: SEROQUEL 100MG PO QHS
[2016-06-02 10:18] LABS: MCHC 31.6 g/dl (32.0-35.9); MEAN CELL VOLUME 82.3 fl (80-96); MEAN PLT VOLUME 8.5 fl (7.5-11.1); PLATELET COUNT 350 K/MM3 (134-434); RDW 13.9 % (11.9-15.9); WHITE BLOOD COUNT 4.6 K/mm3 (4.0-10.0)
[2016-06-02] MEDS: PRENATAL VITAMINS W/ FOLIC ACID TABLET (FP) PO SCH (10:19)
[2016-06-02 10:31] LABS: ALBUMIN 3.2 g/dl (3.4-5.0); ANION GAP 9 (8-16); CALCIUM 8.8 mg/dL (8.5-10.1); CO2 28 mmol/L (21-32); COCKROFT - GAULT 74.08; GLUCOSE,RANDOM 81 mg/dL (74-106); SGOT/AST 19 U/L (15-37); SGPT/ALT 22 U/L (12-78)
[2016-06-02 10:32] LABS: ALK PHOS 66 U/L (45-117); BILIRUBIN,TOTAL 0.7 mg/dL (0.2-1.0); TOT PROT 6.5 g/dl (6.4-8.2)
[2016-06-02 11:16] LABS: HIV 1 & 2 AB NEGATIVE; HIV 1 AGp24 NEGATIVE
--- NOTE | 2016-06-02 12:22 | PN ---
S CIWA - CIWA Score Nausea/Vomitin-Mild Nausea/No Vomiting Muscle Tremors: 4-Moderate,w/Arms Extend Anxiety: 3 Agitation: 3 Paroxysmal Sweats: 3 Orientation: 0-Oriented Tacttile Disturbances: 0-None Auditory Disturbances: 0-None Visual Disturbances: 0-None Headache: 0-None Present CIWA-Ar Total Score: 14 BHS Progress Note (SOAP) Subjective: Anxiety,tremors,sweating,interrupted sleep,restless,body aches Objective: 06/02/16 12:21 Vital Signs - 8 hr 06/02/16 06/02/16 06:33 09:16 Temperature 97.7 F 96.8 F L Pulse Rate 66 68 Respiratory 18 18 Rate Blood Pressure 141/99 149/93 Laboratory Tests 06/01/16 06/02/16 06/02/16 21:20 07:00 07:00 WBC 4.6 RBC 4.55 Hgb 11.8 D Hct 37.5 MCV 82.3 MCHC 31.6 L RDW 13.9 Plt Count 350 D MPV 8.5 Sodium Potassium Chloride Carbon Dioxide Anion Gap BUN Creatinine Creat Clearance w eGFR Random Glucose Calcium Total Bilirubin AST ALT Alkaline Phosphatase Total Protein Albumin Urine Color Yellow Urine Appearance Clear Urine pH 5.0 Ur Specific [place] 1.026 Urine Protein Negative Urine Glucose (UA) Negative Urine Ketones Negative Urine Blood 1+ H Urine Nitrite Negative Urine Bilirubin Negative Urine Urobilinogen Negative Ur Leukocyte Esterase 1+ H Urine RBC 2 Urine WBC 11 Ur Epithelial Cells Rare Urine Mucus Rare RPR Titer HIV 1&2 Antibody Screen Negative HIV P24 Antigen Negative 06/02/16 06/02/16 07:00 07:00 WBC RBC Hgb Hct MCV MCHC RDW Plt Count MPV Sodium 144 Potassium 4.7 D Chloride 107 Carbon Dioxide 28 Anion Gap 9 BUN 20 H D Creatinine 1.0 Creat Clearance w eGFR > 60 Random Glucose 81 Calcium 8.8 Total Bilirubin 0.7 AST 19 D ALT 22 D Alkaline Phosphatase 66 Total Protein 6.5 Albumin 3.2 L Urine Color Urine Appearance Urine pH Ur Specific [place] Urine Protein Urine Glucose (UA) Urine Ketones Urine Blood Urine Nitrite Urine Bilirubin Urine Urobilinogen Ur Leukocyte Esterase Urine RBC Urine WBC Ur Epithelial Cells Urine Mucus RPR Titer Nonreactive HIV 1&2 Antibody Screen HIV P24 Antigen labs noted Assessment: 06/02/16 12:22 withdrawal sx. Plan: Continue detox
--- NOTE | 2016-06-02 13:34 | EKG ---
Test Reason : Blood Pressure : / mmHG Vent. Rate : 071 BPM Atrial Rate : 071 BPM P-R Int : 130 ms QRS Dur : 094 ms QT Int : 370 ms P-R-T Axes : 082 082 065 degrees QTc Int : 402 ms NORMAL SINUS RHYTHM NORMAL ECG WHEN COMPARED WITH ECG OF 05-MAR-2016 11:43, PREMATURE ATRIAL COMPLEXES ARE NO LONGER PRESENT Confirmed by ANTONIA QUIGLEY MD ([id number]) on 06/02/2016 1:33:41 PM Referred By: Confirmed By:ANTONIA QUIGLEY MD
[2016-06-02] MEDS: diphenhydrAMINE HCL 50 MG CAPSULE PO PRN (22:25)
[2016-06-02] MEDS: THIAMINE HCL 100 MG TABLET (FP) PO SCH (22:25)
[2016-06-03] MEDS: chlordiazePOXIDE HCL 25 MG CAPSULE PO SCH ×2 (05:27→10:54)
--- NOTE | 2016-06-03 10:33 | PN ---
S CIWA - CIWA Score Nausea/Vomitin-No Nausea/No Vomiting Muscle Tremors: 4-Moderate,w/Arms Extend Anxiety: 5 Agitation: 4-Moderately Restless Paroxysmal Sweats: 2 Orientation: 0-Oriented Tacttile Disturbances: 3-Moderate Itch/Numb/Burn Auditory Disturbances: 0-None Visual Disturbances: 0-None Headache: 0-None Present CIWA-Ar Total Score: 18 BHS Progress Note (SOAP) Subjective: ANXIETY,SWEATS,TREMORS,INTERMITTENT SLEEP Objective: 06/03/16 10:32 Vital Signs Temperature 98.3 F 06/03/16 09:17 Pulse Rate 70 06/03/16 09:17 Respiratory Rate 18 06/03/16 09:17 Blood Pressure 134/86 06/03/16 09:17 O2 Sat by Pulse Oximetry (%) Assessment: 06/03/16 10:32 WITHDRAWAL SX Plan: CONTINUE DETOX
[2016-06-03] MEDS: PRENATAL VITAMINS W/ FOLIC ACID TABLET (FP) PO SCH (10:53)
[2016-06-03 14:22] VITALS: BP 134/82; PULSE 75; TEMP 97.5
--- NOTE | 2016-06-03 15:40 | DS ---
[facility] Detox Discharge Summary Admission Date: 06/01/16 Discharge Date: 06/03/16 - History Present History: Alcohol Dependence, Cocaine Dependence Additional Comments: PT DECLINED TO CONTINUE WITH DETOX. ALL EFFORTS TO ENCOURAGE PT TO COMPLETE TX FAILED. ALERT O X 3. NAD. Pertinent Past History: DEPRESSION HX - Physical Exam Results Vital Signs: Vital Signs Temperature 97.5 F L 06/03/16 14:21 Pulse Rate 75 06/03/16 14:21 Respiratory Rate 20 06/03/16 14:21 Blood Pressure 134/82 06/03/16 14:21 O2 Sat by Pulse Oximetry (%) Pertinent Admission Physical Exam Findings: WITHDRAWAL SX - Treatment Hospital Course: Discharged Condition Good - Medication Discharge Medications: Ambulatory Orders Quetiapine Fumarate [Seroquel] 100 tab PO HS #30 tablet 10/05/15 - Diagnosis (1) Alcohol dependence with uncomplicated withdrawal Current Visit: Yes Status: Acute (2) Nicotine dependence Current Visit: Yes Status: Acute Qualifiers: Nicotine product type: cigarettes Substance use status: in withdrawal Qualified Code(s): F17.213 - Nicotine dependence, cigarettes, with withdrawal (3) Weight loss Current Visit: Yes Status: Acute (4) Cocaine dependence Current Visit: Yes Status: Acute Qualifiers: Substance use status: uncomplicated Qualified Code(s): F14.20 - Cocaine dependence, uncomplicated (5) Substance or medication-induced sleep disorder, insomnia type Current Visit: Yes Status: Acute (6) Drug-induced mood disorder Current Visit: Yes Status: Chronic (7) Bipolar disorder Current Visit: Yes Status: Suspected - AMA Did Patient Leave Against Medical Advice: Yes (AMA)
[2016-06-03] MEDS ORDERED: chlordiazePOXIDE 5 MG CAPSULE PO SCH (23:00)
[2016-06-04] MEDS ORDERED: chlordiazePOXIDE HCL 10 MG CAPSULE PO SCH (23:00)
== END 2016-06-03 15:30 | disposition left against medical advice (07) | DRG 770 ==
LOC: YASAS 11:58 → Y3N 19:22
PROVIDERS: ADMIT Internal Medicine; ATTEND Internal Medicine
PROC: HZ2ZZZZ Detoxification Services for Substance Abuse Treatment (ICD-10-PCS; principal; 2016-06-03)
DX: F10.230 Alcohol dependence with withdrawal, uncomplicated (principal); F14.20 Cocaine dependence, uncomplicated; F17.210 Nicotine dependence, cigarettes, uncomplicated; F19.282 Other psychoactive substance dependence with psychoactive substance-induced sleep disorder; F19.24 Other psychoactive substance dependence with psychoactive substance-induced mood disorder; F31.9 Bipolar disorder, unspecified; R63.4 Abnormal weight loss; Z68.23 Body mass index [BMI] 23.0-23.9, adult
CPT/HCPCS: 36415; 80053; 81003; 81015; 85027; 86593; 87389; 93005; 93010

== ENCOUNTER 2016-09-26 13:33 | Inpatient (IN) | payer OTHER ==
[2016-09-26 13:52] VITALS: BMI 26.2
--- NOTE | 2016-09-26 17:09 | HP ---
CIWA Score - CIWA Score Nausea/Vomitin-No Nausea/No Vomiting Muscle Tremors: 4-Moderate,w/Arms Extend Anxiety: 4-Mod. Anxious/Guarded Agitation: 3 Paroxysmal Sweats: 1-Minimal Palms Moist Orientation: 0-Oriented Tacttile Disturbances: 3-Moderate Itch/Numb/Burn Auditory Disturbances: 0-None Visual Disturbances: 0-None Headache: 0-None Present CIWA-Ar Total Score: 15 Admission ROS BHS - HPI Chief Complaint: DETOX TX FOR ALCOHOL DEPENDENCE Allergies/Adverse Reactions: Allergies Allergy/AdvReac Type Severity Reaction Status Date / Time No Known Allergies Allergy Verified 09/26/16 15:22 History of Present Illness: 55 Y/O AA/MALE WITH A HX ALCOHOL AND COCAINE DEPENDENCE SEEKING DETOX TX Exam Limitations: No Limitations - Ebola screening Have you traveled outside of the country in the last 21 days: No Have you had contact with anyone from an Ebola affected area: No Have you been sick,other than usual withdrawal symptoms: No Do you have a fever: No - Review of Systems Constitutional: Chills, Night Sweats, Changes in sleep, Unintentional Wgt. Loss EENT: reports: Blurred Vision, Dental Problems (NO TEETH) Respiratory: reports: No Symptoms reported Cardiac: reports: Lightheadedness GI: reports: Diarrhea : reports: Frequency (DUE TO DRINKING) Musculoskeletal: reports: No Symptoms Reported Integumentary: reports: No Symptoms Reported Neuro: reports: Headache, Unsteady Gait, Dizziness Endocrine: reports: No Symptoms Reported Hematology: reports: No Symptoms Reported Psychiatric: reports: Orientated x3, Anxious, Depressed Other Systems: Reviewed and Negative Patient History - Patient Medical History Hx Anemia: No Hx Asthma: No Hx Chronic Obstructive Pulmonary Disease (COPD): No Hx Cancer: No Hx Cardiac Disorders: No Hx Congestive Heart Failure: No Hx Hypertension: Yes (Pt has a hx of HTN.) Hx Hypercholesterolemia: No Hx Pacemaker: No HX Cerebrovascular Accident: No Hx Seizures: No Hx Dementia: No Hx Diabetes: No Hx Gastrointestinal Disorders: No Hx Liver Disease: No Hx Genitourinary Disorders: No Hx Sexually Transmitted Disorders: No Hx Renal Disease (ESRD): No Hx Thyroid Disease: No Hx Human Immunodeficiency Virus (HIV): No (NEGATIVE HX) Hx Hepatitis C: No Hx Depression: Yes ("I LOST MY MEDICATION 2 WEEKS AGO") Hx Suicide Attempt: No Hx Bipolar Disorder: Yes Hx Schizophrenia: No - Patient Surgical History Past Surgical History: No Hx Neurologic Surgery: No Hx Cataract Extraction: No Hx Cardiac Surgery: No Hx Lung Surgery: No Hx Breast Surgery: No Hx Breast Biopsy: No Hx Abdominal Surgery: No Hx Appendectomy: No Hx Cholecystectomy: No Hx Genitourinary Surgery: No Hx Orthopedic Surgery: No Anesthesia Reaction: No - PPD History Previous Implant?: Yes Documented Results: Negative w/o proof Implanted On Prior [facility] Admission?: Yes Date: 05/18/15 Results: 0 mm PPD to be Administered?: Yes - Reproductive History Patient is a Female of Child Bearing Age (11 -55 yrs old): No (MALE) Patient : (N/A) - Smoking Cessation Smoking history: Current every day smoker Have you smoked in the past 12 months: Yes Aproximately how many cigarettes per day: 5 Cigars Per Day: 0 Hx Chewing Tobacco Use: No Initiated information on smoking cessation: Yes 'Breaking Loose' booklet given: 09/26/16 - Substance & Tx. History Hx Alcohol Use: Yes (BEER/VODKA) Hx Substance Use: Yes (COCAINE) Substance Use Type: Alcohol, Cocaine Hx Substance Use Treatment: Yes (LAST TX AT [facility] DETOX) - Substances Abused Alcohol Route: Oral Frequency: Daily Amount used: 3 6PKS BEER Age of first use: 15 Date of Last Use: 09/26/16 Cocaine Route: Smoking Frequency: Daily Amount used: $50 AND UP Age of first use: 49 Date of Last Use: 09/26/16 Family Disease History - Family Disease History Family Disease History: Heart Disease: Father (ALCOHOL,), CA: Mother ( ALCOHOL,), Other: Father, Mother, Brother (ALCOHOL,DSA,, AIDS), Sister (, ANEURYSM, AIDS) Admission Physical Exam BHS - Vital Signs Vital Signs: Vital Signs - 24 hr 09/26/16 13:42 Temperature 97.1 F L Pulse Rate 82 Respiratory 16 Rate Blood Pressure 140/77 - Physical General Appearance: Yes: Moderate Distress, Irritable, Anxious HEENTM: Yes: EOMI, Normocephalic, MARY, Pharynx Normal Respiratory: Yes: Chest Non-Tender, Lungs Clear, Normal Breath Sounds, No Respiratory Distress Neck: Yes: No masses,lesions,Nodules, Supple, Trachea in good position Breast: Yes: Breast Exam Deferred Cardiology: Yes: Regular Rhythm, Regular Rate, S1, S2 Abdominal: Yes: Normal Bowel Sounds, Non Tender, Soft Genitourinary: Yes: Other (N/C) Musculoskeletal: Yes: full range of Motion, Gait Steady Extremities: Yes: Normal Range of Motion, Non-Tender Neurological: Yes: 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 inspector II-XII NML intact, Fully Oriented, Alert, Motor Strength 5/5 Integumentary: Yes: Dry, Warm Lymphatic: Yes: Within Normal Limits - Diagnostic (1) Alcohol dependence with uncomplicated withdrawal Current Visit: Yes Status: Acute (2) Cocaine dependence Current Visit: Yes Status: Acute Qualifiers: Substance use status: uncomplicated (3) Nicotine dependence Current Visit: Yes Status: Acute Qualifiers: Nicotine product type: cigarettes Substance use status: in withdrawal Qualified Code(s): F17.213 - Nicotine dependence, cigarettes, with withdrawal (4) Weight loss Current Visit: Yes Status: Acute Cleared for Admission [facility] - Detox or Rehab [facility] Level of Care: Medically Managed Detox Regimen/Protocol: Librium [facility] Breath Alcohol Content Breath Alcohol Content: 0.042 Urine Drug Screen - Results Drug Screen Negative: No Urine Drug Screen Results: HERMINIO-Cocaine
[2016-09-26] MEDS ORDERED: chlordiazePOXIDE HCL 25 MG CAPSULE PO PRN (17:12)
[2016-09-26] MEDS ORDERED: IBUPROFEN 400 MG TABLET (FP) PO PRN (17:12)
[2016-09-26] MEDS ORDERED: guaiFENesin/D-METHORPHAN HB 10 ML UNIT-DOSE CUPS PO PRN (17:12)
[2016-09-26] MEDS ORDERED: P-EPHED 60MG/TRIPROLIDI 2.5MG TABLET PO PRN (17:12)
[2016-09-26] MEDS ORDERED: NICOTINE POLACRILEX 2 MG GUM BC PRN (17:12)
[2016-09-26] MEDS ORDERED: ACETAMINOPHEN 325 MG TABLET (FP) PO PRN (17:12)
[2016-09-26] MEDS ORDERED: MENTHOL/PHENOL 1 EACH UD MM PRN (17:12)
[2016-09-26] MEDS ORDERED: MAGNESIUM CITRATE 300 ML BOTTLE PO PRN (17:12)
[2016-09-26] MEDS ORDERED: LOPERAMIDE HCL 2 MG CAPSULE PO PRN (17:12)
[2016-09-26] MEDS ORDERED: MAG HYDROX/AL HYDROX/SIMETH 30 ML UNIT-DOSE CUP PO PRN (17:12)
[2016-09-26] MEDS ORDERED: diphenhydrAMINE HCL 50 MG CAPSULE PO PRN (17:12)
[2016-09-26] MEDS ORDERED: MAGNESIUM HYDROX 2400MG/30ML ORAL SUSPENSION 30 ML CUP PO PRN (17:12)
[2016-09-26] MEDS ORDERED: chlordiazePOXIDE HCL 25 MG CAPSULE PO ONE (17:15)
[2016-09-26] MEDS: NICOTINE 14 MG/24 HOURS TOPICAL PATCH TD SCH (17:57)
[2016-09-26 21:10] LABS: URINE APPEARANCE SLCLOUDY; URINE BILIRUBIN NEGATIVE (NEGATIVE); URINE BLOOD 1+ (NEGATIVE); URINE COLOR YELLOW; URINE GLUCOSE (UA) NEGATIVE (NEGATIVE); URINE KETONE TRACE (NEGATIVE); URINE LEUK ESTERASE TRACE (NEGATIVE); URINE NITRITE NEGATIVE (NEGATIVE); URINE PROTEIN NEGATIVE (NEGATIVE); URINE UROBILINOGEN NEGATIVE mg/dL (0.2-1.0)
[2016-09-26 21:20] LABS: URINE MUCUS RARE; URINE RBC 1 /hpf (0-3); URINE WBC 8 /hpf (3-5)
[2016-09-26] MEDS: chlordiazePOXIDE HCL 25 MG CAPSULE PO SCH (22:21)
[2016-09-26] MEDS: THIAMINE HCL 100 MG TABLET (FP) PO SCH (22:21)
[2016-09-27] MEDS: chlordiazePOXIDE HCL 25 MG CAPSULE PO SCH ×4 (05:44→22:49)
[2016-09-27 09:55] LABS: MCH 25.5 pg (25.7-33.7); MCHC 31.6 g/dl (32.0-35.9); MEAN CELL VOLUME 80.9 fl (80-96); MEAN PLT VOLUME 9.2 fl (7.5-11.1); PLATELET COUNT 258 K/MM3 (134-434); RDW 13.8 % (11.9-15.9); WHITE BLOOD COUNT 4.5 K/mm3 (4.0-10.0)
[2016-09-27] MEDS: PRENATAL VITAMINS W/ FOLIC ACID TABLET (FP) PO SCH (10:13)
[2016-09-27] MEDS: NICOTINE 14 MG/24 HOURS TOPICAL PATCH TD SCH (10:14)
[2016-09-27 10:54] LABS: ALK PHOS 72 U/L (45-117); ANION GAP 8 (8-16); BILIRUBIN,TOTAL 0.4 mg/dL (0.2-1.0); CO2 28 mmol/L (21-32); CREATININE 1.1 mg/dL (0.7-1.3); GLUCOSE,RANDOM 114 mg/dL (74-106); SGOT/AST 21 U/L (15-37); SGPT/ALT 30 U/L (12-78); TOT PROT 7.3 g/dl (6.4-8.2)
--- NOTE | 2016-09-27 11:10 | CONSULT ---
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 Substance Abuse History: Discussed with patient in this interview.Mr Argueta confirms this report. Smoking Cessation. Smoking history: Current every day smoker. Have you smoked in the past 12 months: Yes. Aproximately how many cigarettes per day: 5. Cigars Per Day: 0. Hx Chewing Tobacco Use: No. Initiated information on smoking cessation: Yes. 'Breaking Loose' booklet given : 09/26/16. - Substance & Tx. History. Hx Alcohol Use: Yes (BEER/VODKA). Hx Substance Use: Yes (COCAINE). Substance Use Type: Alcohol, Cocaine. Hx Substance Use Treatment: Yes (LAST TX AT [facility] DETOX). - Substances Abused. * * Alcohol. Route: Oral. Frequency: Daily. Amount used: 3 6PKS BEER. Age of first use: 15. Date of Last Use: 09/26/16. Cocaine. Route: Smoking. Frequency: Daily. Amount used: $50 AND UP. Age of first use: 49. Date of Last Use: 09/26/16 Medical History: HTN and abdominal hernia. Psychiatric History: No reported history of psychiatric hospitalizations.Mr Argueta indicates that he was diagnosed with Bipolar Disorder,years ago,during his incarceration at the [facility] (served a seven year sentence) in [facility].However the patient argues that he does not have a mental condition." I take seroquel only for insomnia.That's all." No reported formal OPD care.The patient gets refills from local emergency rooms.Denies history of suicide attempts. Physical/Sexual Abuse/Trauma History: Patient denies. Additional Comment: Urine Drug Screen Results: HERMINIO-Cocaine.Noted. Mental Status Exam - Mental Status Exam Alert and Oriented to: Time, Place, Person Cognitive Function: Good Patient Appearance: Well Groomed Mood: Hopeful, Euthymic Affect: Appropriate, Normal Range Patient Behavior: Fatigued, Appropriate, Cooperative Speech Pattern: Clear Voice Loudness: Normal Thought Process: Goal Oriented Thought Disorder: Not Present Hallucinations: Denies Suicidal Ideation: Denies Homicidal Ideation: Denies Insight/Judgement: Poor Sleep: Poorly, Difficulty falling asleep Appetite: Good Muscle strength/Tone: Normal Gait/Station: Normal Psychiatric Findings - Problem List ([place] 1, 2,3) (1) Alcohol dependence with uncomplicated withdrawal Current Visit: Yes Status: Acute (2) Cocaine dependence Current Visit: Yes Status: Acute Qualifiers: Substance use status: uncomplicated Qualified Code(s): F14.20 - Cocaine dependence, uncomplicated (3) Nicotine dependence Current Visit: Yes Status: Acute Qualifiers: Nicotine product type: cigarettes Substance use status: in withdrawal Qualified Code(s): F17.213 - Nicotine dependence, cigarettes, with withdrawal (4) Drug-induced mood disorder Current Visit: Yes Status: Acute (5) History of hypertension Current Visit: Yes Status: Suspected (6) Insomnia Current Visit: Yes Status: Acute - Initial Treatment Plan Initial Treatment Plan: Psychoeducation.Detoxification.Seroquel 100 mg po hs.Side effects/benefits discussed with patient.Mr Argueta consents (verbally) to follow this careplan.Observation.
--- NOTE | 2016-09-27 11:57 | PN ---
[facility] CIWA - CIWA Score Nausea/Vomitin-Mild Nausea/No Vomiting Muscle Tremors: 4-Moderate,w/Arms Extend Anxiety: 3 Agitation: 0-Normal Activity Paroxysmal Sweats: 2 Orientation: 0-Oriented Tacttile Disturbances: 2-Mild Itch/Numbness/Burn Auditory Disturbances: 2-Mild Harshness/Frighten Visual Disturbances: 3-Moderate Sensitivity Headache: 0-None Present CIWA-Ar Total Score: 17 S Progress Note (SOAP) Subjective: Tremors, Fatigue, Anxious. Objective: PT. A & O X 3, OBSERVED AMBULATING ON UNIT. NO ACUTE DISTRESS. PT. DENIES CHEST PAIN. 09/27/16 11:54 Vital Signs Temperature 97.8 F 09/27/16 09:26 Pulse Rate 70 09/27/16 09:26 Respiratory Rate 18 09/27/16 09:26 Blood Pressure 139/90 09/27/16 09:26 O2 Sat by Pulse Oximetry (%) Laboratory Tests 09/26/16 09/27/16 09/27/16 20:00 06:00 06:00 WBC 4.5 RBC 4.73 Hgb 12.1 Hct 38.3 MCV 80.9 MCH 25.5 L MCHC 31.6 L RDW 13.8 Plt Count 258 D MPV 9.2 Sodium 140 Potassium 4.7 Chloride 104 Carbon Dioxide 28 Anion Gap 8 BUN 14 D Creatinine 1.1 Creat Clearance w eGFR > 60 Random Glucose 114 H D Calcium 9.0 Total Bilirubin 0.4 D AST 21 ALT 30 D Alkaline Phosphatase 72 Total Protein 7.3 Albumin 4.0 D Urine Color Yellow Urine Appearance Slcloudy Urine pH 5.0 Ur Specific [place] >= 1.030 H Urine Protein Negative Urine Glucose (UA) Negative Urine Ketones Trace H Urine Blood 1+ H Urine Nitrite Negative Urine Bilirubin Negative Urine Urobilinogen Negative Ur Leukocyte Esterase Trace Urine RBC 1 Urine WBC 8 Ur Epithelial Cells Rare Urine Mucus Rare LABS NOTED. Assessment: 09/27/16 11:54 WITHDRAWAL SYMPTOMS. Plan: CONTINUE DETOX.
[2016-09-27 12:39] LABS: HIV 1 & 2 AB NEGATIVE; HIV 1 AGp24 NEGATIVE
[2016-09-27 17:50] LABS: URINE APPEARANCE CLEAR; URINE BILIRUBIN NEGATIVE (NEGATIVE); URINE BLOOD NEGATIVE (NEGATIVE); URINE COLOR YELLOW; URINE GLUCOSE (UA) NEGATIVE (NEGATIVE); URINE KETONE NEGATIVE (NEGATIVE); URINE LEUK ESTERASE NEGATIVE (NEGATIVE); URINE NITRITE NEGATIVE (NEGATIVE); URINE PROTEIN NEGATIVE (NEGATIVE); URINE UROBILINOGEN NEGATIVE mg/dL (0.2-1.0)
[2016-09-27] MEDS: QUEtiapine FUMARATE 100 MG TABLET (FP) PO SCH (22:48)
[2016-09-27] MEDS: THIAMINE HCL 100 MG TABLET (FP) PO SCH (22:48)
[2016-09-28] MEDS: chlordiazePOXIDE HCL 25 MG CAPSULE PO SCH ×3 (05:30→18:07)
[2016-09-28] MEDS: PRENATAL VITAMINS W/ FOLIC ACID TABLET (FP) PO SCH (10:29)
[2016-09-28] MEDS: NICOTINE 14 MG/24 HOURS TOPICAL PATCH TD SCH (10:29)
--- NOTE | 2016-09-28 11:32 | EKG ---
Test Reason : Blood Pressure : / mmHG Vent. Rate : 063 BPM Atrial Rate : 063 BPM P-R Int : 132 ms QRS Dur : 098 ms QT Int : 410 ms P-R-T Axes : 082 081 064 degrees QTc Int : 419 ms NORMAL SINUS RHYTHM NORMAL ECG WHEN COMPARED WITH ECG OF 01-JUN-2016 19:41, NO SIGNIFICANT CHANGE WAS FOUND Confirmed by KERLINE PRESTON MD ([id number]) on 09/28/2016 11:32:15 AM Referred By: Shahbaz Billings Confirmed By:KERLINE PRESTON MD
--- NOTE | 2016-09-28 13:05 | PN ---
[facility] CIWA - CIWA Score Nausea/Vomitin-Mild Nausea/No Vomiting Muscle Tremors: 3 Anxiety: 3 Agitation: 2 Paroxysmal Sweats: 3 Orientation: 0-Oriented Tacttile Disturbances: 2-Mild Itch/Numbness/Burn Auditory Disturbances: 0-None Visual Disturbances: 2-Mild Sensitivity Headache: 0-None Present CIWA-Ar Total Score: 16 S Progress Note (SOAP) Subjective: Sweating, Tremors, Fatigue. Objective: PT. A & O X 3, OBSERVED AMBULATING ON UNIT. NO ACUTE DISTRESS. PT. DENIES CHEST PAIN. 09/28/16 13:03 Vital Signs Temperature 98.3 F 09/28/16 09:27 Pulse Rate 61 09/28/16 09:27 Respiratory Rate 18 09/28/16 09:27 Blood Pressure 130/90 09/28/16 09:27 O2 Sat by Pulse Oximetry (%) Laboratory Tests 09/26/16 09/26/16 09/27/16 13:00 20:00 06:00 WBC 4.5 RBC 4.73 Hgb 12.1 Hct 38.3 MCV 80.9 MCH 25.5 L MCHC 31.6 L RDW 13.8 Plt Count 258 D MPV 9.2 Sodium Potassium Chloride Carbon Dioxide Anion Gap BUN Creatinine Creat Clearance w eGFR Random Glucose Calcium Total Bilirubin AST ALT Alkaline Phosphatase Total Protein Albumin Urine Color Yellow Urine Appearance Slcloudy Urine pH 5.0 Ur Specific [place] >= 1.030 H Urine Protein Negative Urine Glucose (UA) Negative Urine Ketones Trace H Urine Blood 1+ H Urine Nitrite Negative Urine Bilirubin Negative Urine Urobilinogen Negative Ur Leukocyte Esterase Trace Urine RBC 1 Urine WBC 8 Ur Epithelial Cells Rare Urine Mucus Rare HIV 1&2 Antibody Screen Negative HIV P24 Antigen Negative 09/27/16 09/27/16 06:00 14:00 WBC RBC Hgb Hct MCV MCH MCHC RDW Plt Count MPV Sodium 140 Potassium 4.7 Chloride 104 Carbon Dioxide 28 Anion Gap 8 BUN 14 D Creatinine 1.1 Creat Clearance w eGFR > 60 Random Glucose 114 H D Calcium 9.0 Total Bilirubin 0.4 D AST 21 ALT 30 D Alkaline Phosphatase 72 Total Protein 7.3 Albumin 4.0 D Urine Color Yellow Urine Appearance Clear Urine pH 6.0 Ur Specific [place] 1.020 Urine Protein Negative Urine Glucose (UA) Negative Urine Ketones Negative Urine Blood Negative Urine Nitrite Negative Urine Bilirubin Negative Urine Urobilinogen Negative Ur Leukocyte Esterase Negative Urine RBC Urine WBC Ur Epithelial Cells Urine Mucus HIV 1&2 Antibody Screen HIV P24 Antigen LABS NOTED. RESULTS OF REPEAT UA NOTED. RPR RESULT PENDING. 09/28/16 13:04 Assessment: 09/28/16 13:03 WITHDRAWAL SYMPTOMS. Plan: CONTINUE DETOX.
[2016-09-28] MEDS: THIAMINE HCL 100 MG TABLET (FP) PO SCH (23:17)
[2016-09-28] MEDS: chlordiazePOXIDE 5 MG CAPSULE PO SCH (23:17)
[2016-09-28] MEDS: QUEtiapine FUMARATE 100 MG TABLET (FP) PO SCH (23:17)
[2016-09-29] MEDS: chlordiazePOXIDE 5 MG CAPSULE PO SCH ×2 (06:15→10:57)
[2016-09-29 06:35] VITALS: TEMP 98.2
[2016-09-29 09:49] VITALS: BP 143/91; PULSE 76
[2016-09-29] MEDS: PRENATAL VITAMINS W/ FOLIC ACID TABLET (FP) PO SCH (10:56)
[2016-09-29] MEDS: NICOTINE 14 MG/24 HOURS TOPICAL PATCH TD SCH (10:56)
--- NOTE | 2016-09-29 16:52 | DS ---
[facility] Detox Discharge Summary Admission Date: 09/26/16 Discharge Date: 09/29/16 - History Present History: Alcohol Dependence, Cocaine Dependence Additional Comments: PATIENT DID NOT WISH TO STAY TO COMPLETE DETOX REGIMEN. PATIENT ADVISED TO IMMEDIATELY GO TO NEAREST ER SHOULD ANY INTOLERABLE DETOX SYMPTOMS DEVELOP AT ANY TIME. PATIENT LEFT UNIT IN STABLE MEDICAL CONDITION. Pertinent Past History: Depression, Bipolar disorder, Insomnia, History of HTN. - Physical Exam Results Vital Signs: Vital Signs Temperature 98.2 F 09/29/16 09:49 Pulse Rate 76 09/29/16 09:49 Respiratory Rate 16 09/29/16 09:49 Blood Pressure 143/91 09/29/16 09:49 O2 Sat by Pulse Oximetry (%) Pertinent Admission Physical Exam Findings: WITHDRAWAL SYMPTOMS. Laboratory Tests 09/26/16 09/26/16 09/27/16 13:00 20:00 06:00 WBC 4.5 RBC 4.73 Hgb 12.1 Hct 38.3 MCV 80.9 MCH 25.5 L MCHC 31.6 L RDW 13.8 Plt Count 258 D MPV 9.2 Sodium Potassium Chloride Carbon Dioxide Anion Gap BUN Creatinine Creat Clearance w eGFR Random Glucose Calcium Total Bilirubin AST ALT Alkaline Phosphatase Total Protein Albumin Urine Color Yellow Urine Appearance Slcloudy Urine pH 5.0 Ur Specific [place] >= 1.030 H Urine Protein Negative Urine Glucose (UA) Negative Urine Ketones Trace H Urine Blood 1+ H Urine Nitrite Negative Urine Bilirubin Negative Urine Urobilinogen Negative Ur Leukocyte Esterase Trace Urine RBC 1 Urine WBC 8 Ur Epithelial Cells Rare Urine Mucus Rare RPR Titer HIV 1&2 Antibody Screen Negative HIV P24 Antigen Negative 09/27/16 09/27/16 09/27/16 06:00 06:00 14:00 WBC RBC Hgb Hct MCV MCH MCHC RDW Plt Count MPV Sodium 140 Potassium 4.7 Chloride 104 Carbon Dioxide 28 Anion Gap 8 BUN 14 D Creatinine 1.1 Creat Clearance w eGFR > 60 Random Glucose 114 H D Calcium 9.0 Total Bilirubin 0.4 D AST 21 ALT 30 D Alkaline Phosphatase 72 Total Protein 7.3 Albumin 4.0 D Urine Color Yellow Urine Appearance Clear Urine pH 6.0 Ur Specific [place] 1.020 Urine Protein Negative Urine Glucose (UA) Negative Urine Ketones Negative Urine Blood Negative Urine Nitrite Negative Urine Bilirubin Negative Urine Urobilinogen Negative Ur Leukocyte Esterase Negative Urine RBC Urine WBC Ur Epithelial Cells Urine Mucus RPR Titer Nonreactive HIV 1&2 Antibody Screen HIV P24 Antigen LABS NOTED. - Treatment Hospital Course: Detoxed Safely - Medication Discharge Medications: Ambulatory Orders Quetiapine Fumarate [Seroquel] 100 mg PO HS #30 tablet 09/27/16 - Diagnosis (1) Alcohol dependence with uncomplicated withdrawal Status: Acute (2) Cocaine dependence Status: Acute Qualifiers: Substance use status: uncomplicated Qualified Code(s): F14.20 - Cocaine dependence, uncomplicated (3) Drug-induced mood disorder Status: Acute (4) Insomnia Status: Acute Qualifiers: Insomnia type: unspecified Qualified Code(s): G47.00 - Insomnia, unspecified (5) Nicotine dependence Status: Chronic Qualifiers: Nicotine product type: cigarettes Substance use status: in withdrawal Qualified Code(s): F17.213 - Nicotine dependence, cigarettes, with withdrawal (6) History of hypertension Status: Suspected (7) Weight loss Status: Acute - AMA Did Patient Leave Against Medical Advice: Yes (PATIENT DID NOT WISH TO STAY TO COMPLETE DETOX REGIMEN.)
[2016-09-29] MEDS ORDERED: chlordiazePOXIDE HCL 10 MG CAPSULE PO SCH (23:00)
== END 2016-09-29 09:55 | disposition left against medical advice (07) | DRG 770 ==
LOC: YASAS 13:33 → Y3N 15:34
PROVIDERS: ADMIT Internal Medicine; ATTEND Internal Medicine
PROC: HZ2ZZZZ Detoxification Services for Substance Abuse Treatment (ICD-10-PCS; principal; 2016-09-29)
DX: F10.230 Alcohol dependence with withdrawal, uncomplicated (principal); F14.20 Cocaine dependence, uncomplicated; F17.213 Nicotine dependence, cigarettes, with withdrawal; F19.24 Other psychoactive substance dependence with psychoactive substance-induced mood disorder; G47.00 Insomnia, unspecified; I10 Essential (primary) hypertension; R63.4 Abnormal weight loss; Z68.26 Body mass index [BMI] 26.0-26.9, adult
CPT/HCPCS: 36415; 80053; 81003; 81015; 85027; 86593; 87389; 93005; 93010

== ENCOUNTER 2016-10-29 10:35 | Inpatient (IN) | payer OTHER ==
[2016-10-29 10:49] VITALS: BMI 23.3
--- NOTE | 2016-10-29 10:55 | HP ---
CIWA Score - CIWA Score Nausea/Vomitin-Mild Nausea/No Vomiting Muscle Tremors: 4-Moderate,w/Arms Extend Anxiety: 4-Mod. Anxious/Guarded Agitation: 1-Slight > Activity Paroxysmal Sweats: 1-Minimal Palms Moist Orientation: 1-Uncertain about Date Tacttile Disturbances: 1-Very Mild Itch/Numbness Auditory Disturbances: 1-Very Mild Visual Disturbances: 1-Very Mild Sensitivity Headache: 2-Mild CIWA-Ar Total Score: 17 Admission ROS BHS - HPI Chief Complaint: I want to stop drinking and using - I need detox Allergies/Adverse Reactions: Allergies Allergy/AdvReac Type Severity Reaction Status Date / Time No Known Allergies Allergy Verified 09/26/16 15:22 History of Present Illness: 55 yo gentleman here for detox from alcohol - also using cocaine - last here . Longest time sober 4 years while incarcerated. No seizures but does have black outs. Exam Limitations: Clinical Condition - Ebola screening Have you traveled outside of the country in the last 21 days: No Have you had contact with anyone from an Ebola affected area: No Have you been sick,other than usual withdrawal symptoms: No Do you have a fever: No - Review of Systems Constitutional: Loss of Appetite, Night Sweats, Changes in sleep EENT: reports: No Symptoms Reported Respiratory: reports: No Symptoms reported, Cough Cardiac: reports: No Symptoms Reported GI: reports: Nausea, Poor Appetite : reports: Frequency Musculoskeletal: reports: No Symptoms Reported Integumentary: reports: No Symptoms Reported Neuro: reports: Headache Endocrine: reports: No Symptoms Reported Hematology: reports: No Symptoms Reported Psychiatric: reports: Judgement Intact, Mood/Affect Appropiate, Anxious Other Systems: Reviewed and Negative Patient History - Patient Medical History Hx Anemia: No Hx Asthma: No Hx Chronic Obstructive Pulmonary Disease (COPD): No Hx Cancer: No Hx Cardiac Disorders: No Hx Congestive Heart Failure: No Hx Hypertension: No Hx Hypercholesterolemia: No Hx Pacemaker: No HX Cerebrovascular Accident: No Hx Seizures: No Hx Dementia: No Hx Diabetes: No Hx Gastrointestinal Disorders: No Hx Liver Disease: No Hx Genitourinary Disorders: No Hx Sexually Transmitted Disorders: No Hx Renal Disease (ESRD): No Hx Thyroid Disease: No Hx Human Immunodeficiency Virus (HIV): No Hx Hepatitis C: No Hx Depression: Yes (no current treatment) Hx Suicide Attempt: No Hx Bipolar Disorder: Yes Hx Schizophrenia: No - Patient Surgical History Past Surgical History: No Hx Neurologic Surgery: No Hx Cataract Extraction: No Hx Cardiac Surgery: No Hx Lung Surgery: No Hx Breast Surgery: No Hx Breast Biopsy: No Hx Abdominal Surgery: No Hx Appendectomy: No Hx Cholecystectomy: No Hx Genitourinary Surgery: No Hx Section: No Hx Orthopedic Surgery: No Hx Hysterectomy: No Anesthesia Reaction: No - PPD History Previous Implant?: Yes Documented Results: Negative w/proof Date: 09/28/16 Results: 0 mm PPD to be Administered?: No - Reproductive History Patient is a Female of Child Bearing Age (11 -55 yrs old): No (male) - Smoking Cessation Smoking history: Current every day smoker Have you smoked in the past 12 months: Yes Aproximately how many cigarettes per day: 5 Cigars Per Day: 0 Hx Chewing Tobacco Use: No Initiated information on smoking cessation: Yes 'Breaking Loose' booklet given: 10/29/16 (give on floor) - Substance & Tx. History Hx Alcohol Use: Yes Hx Substance Use: Yes Substance Use Type: Alcohol, Cocaine Hx Substance Use Treatment: Yes (detox, rehab) - Substances Abused Alcohol Route: Oral Frequency: Daily Amount used: seven 40 oz beers Age of first use: 15 Date of Last Use: 10/29/16 Cocaine Route: Smoking Frequency: 3-6 times per week Amount used: $50 Age of first use: 49 Date of Last Use: 10/29/16 Family Disease History - Family Disease History Family Disease History: Heart Disease: Father (ALCOHOL,), CA: Mother ( ALCOHOL,), Other: Father, Mother, Brother (ALCOHOL,DSA,, AIDS), Sister (, ANEURYSM, AIDS) Admission Physical Exam S - Vital Signs Vital Signs: Vital Signs - 24 hr 10/29/16 10:48 Temperature 98.8 F Pulse Rate 76 Respiratory 20 Rate Blood Pressure 124/71 - Physical General Appearance: Yes: Nourished, Appropriately Dressed, Mild Distress, Anxious HEENTM: Yes: Hearing grossly Normal, Normal ENT Inspection, Normocephalic, Normal Voice Respiratory: Yes: Normal Breath Sounds, No Respiratory Distress Neck: Yes: No masses,lesions,Nodules, Supple Breast: Yes: Breast Exam Deferred Cardiology: Yes: Regular Rhythm, Regular Rate Abdominal: Yes: Soft Genitourinary: Yes: Frequency Back: Yes: Normal Inspection Musculoskeletal: Yes: full range of Motion, Gait Steady Extremities: Yes: Normal Inspection, Normal Range of Motion, Non-Tender Neurological: Yes: Fully Oriented, Alert, Motor Strength 5/5, Normal Mood/Affect , Normal Response Integumentary: Yes: Normal Color, Warm Lymphatic: Yes: Within Normal Limits - Diagnostic (1) Alcohol dependence with uncomplicated withdrawal Current Visit: Yes Status: Chronic (2) Cocaine dependence Current Visit: Yes Status: Chronic Qualifiers: Substance use status: uncomplicated Qualified Code(s): F14.20 - Cocaine dependence, uncomplicated (3) Nicotine dependence Current Visit: No Status: Chronic Qualifiers: Nicotine product type: cigarettes Substance use status: uncomplicated Qualified Code(s): F17.210 - Nicotine dependence, cigarettes, uncomplicated Cleared for Admission [facility] - Detox or Rehab [facility] Level of Care: Medically Managed Detox Regimen/Protocol: Librium S Breath Alcohol Content Breath Alcohol Content: 0.033 Urine Drug Screen - Results Drug Screen Negative: No Urine Drug Screen Results: HERMINIO-Cocaine
[2016-10-29] MEDS ORDERED: guaiFENesin/D-METHORPHAN HB 10 ML UNIT-DOSE CUPS PO PRN (10:59)
[2016-10-29] MEDS ORDERED: MAG HYDROX/AL HYDROX/SIMETH 30 ML UNIT-DOSE CUP PO PRN (10:59)
[2016-10-29] MEDS ORDERED: chlordiazePOXIDE HCL 25 MG CAPSULE PO PRN (10:59)
[2016-10-29] MEDS ORDERED: ACETAMINOPHEN 325 MG TABLET (FP) PO PRN (10:59)
[2016-10-29] MEDS ORDERED: P-EPHED 60MG/TRIPROLIDI 2.5MG TABLET PO PRN (10:59)
[2016-10-29] MEDS ORDERED: MENTHOL/PHENOL 1 EACH UD MM PRN (10:59)
[2016-10-29] MEDS ORDERED: NICOTINE POLACRILEX 2 MG GUM BUC PRN (10:59)
[2016-10-29] MEDS ORDERED: IBUPROFEN 400 MG TABLET (FP) PO PRN (10:59)
[2016-10-29] MEDS ORDERED: hydrOXYzine PAMOATE 50 MG CAPSULE (FP) PO PRN (10:59)
[2016-10-29] MEDS ORDERED: MAGNESIUM CITRATE 300 ML BOTTLE PO PRN (10:59)
[2016-10-29] MEDS ORDERED: MAGNESIUM HYDROX 2400MG/30ML ORAL SUSPENSION 30 ML CUP PO PRN (10:59)
[2016-10-29] MEDS ORDERED: LOPERAMIDE HCL 2 MG CAPSULE PO PRN (10:59)
[2016-10-29] MEDS ORDERED: chlordiazePOXIDE HCL 25 MG CAPSULE PO ONE (12:45)
[2016-10-29 17:32] LABS: URINE APPEARANCE SLCLOUDY; URINE BILIRUBIN NEGATIVE (NEGATIVE); URINE BLOOD 1+ (NEGATIVE); URINE COLOR DKYELLOW; URINE GLUCOSE (UA) NEGATIVE (NEGATIVE); URINE KETONE NEGATIVE (NEGATIVE); URINE LEUK ESTERASE NEGATIVE (NEGATIVE); URINE NITRITE NEGATIVE (NEGATIVE); URINE PROTEIN NEGATIVE (NEGATIVE); URINE UROBILINOGEN NEGATIVE mg/dL (0.2-1.0)
[2016-10-29 17:37] LABS: GRANULAR CASTS 1 /lpf; URINE HYALINE CAST 1 /lpf; URINE MUCUS RARE; URINE RBC 4 /hpf (0-3); URINE WBC 6 /hpf (3-5)
[2016-10-29] MEDS: chlordiazePOXIDE HCL 25 MG CAPSULE PO SCH ×2 (17:42→22:33)
[2016-10-29] MEDS ORDERED: diphenhydrAMINE HCL 50 MG CAPSULE PO PRN (22:00)
[2016-10-29] MEDS: THIAMINE HCL 100 MG TABLET (FP) PO SCH (22:33)
[2016-10-30] MEDS: chlordiazePOXIDE HCL 25 MG CAPSULE PO SCH ×4 (06:03→22:38)
--- NOTE | 2016-10-30 08:46 | EKG ---
Test Reason : Blood Pressure : / mmHG Vent. Rate : 076 BPM Atrial Rate : 076 BPM P-R Int : 130 ms QRS Dur : 094 ms QT Int : 386 ms P-R-T Axes : 079 077 058 degrees QTc Int : 434 ms NORMAL SINUS RHYTHM NORMAL ECG WHEN COMPARED WITH ECG OF 26-SEP-2016 16:26, NO SIGNIFICANT CHANGE WAS FOUND Confirmed by MD SHAHZAD, LEX ([id number]) on 10/30/2016 8:45:53 AM Referred By: Confirmed By:LEX PIKE MD
[2016-10-30 10:21] LABS: MCH 25.6 pg (25.7-33.7); MCHC 31.3 g/dl (32.0-35.9); MEAN CELL VOLUME 81.6 fl (80-96); MEAN PLT VOLUME 8.3 fl (7.5-11.1); PLATELET COUNT 303 K/MM3 (134-434); WHITE BLOOD COUNT 3.3 K/mm3 (4.0-10.0)
[2016-10-30 10:27] LABS: ALBUMIN 3.1 g/dl (3.4-5.0); ANION GAP 5 (8-16); BILIRUBIN,TOTAL 0.4 mg/dL (0.2-1.0); CALCIUM 8.4 mg/dL (8.5-10.1); CO2 28 mmol/L (21-32); CREATININE 0.9 mg/dL (0.7-1.3); GLUCOSE,RANDOM 81 mg/dL (74-106); SGOT/AST 19 U/L (15-37); SGPT/ALT 26 U/L (12-78)
[2016-10-30 10:28] LABS: ALK PHOS 54 U/L (45-117)
[2016-10-30] MEDS: PRENATAL VITAMINS W/ FOLIC ACID TABLET (FP) PO SCH (10:40)
--- NOTE | 2016-10-30 13:38 | PN ---
[facility] Progress Note Note: Patient is on my consult list. He was approached and found standing at bedside. He declined to be interviewed saying:" I don't need to talk to you doc, I'm good".
--- NOTE | 2016-10-30 14:14 | PN ---
S CIWA - CIWA Score Nausea/Vomitin Muscle Tremors: 4-Moderate,w/Arms Extend Anxiety: 4-Mod. Anxious/Guarded Agitation: 4-Moderately Restless Paroxysmal Sweats: 3 Orientation: 0-Oriented Tacttile Disturbances: 1-Very Mild Itch/Numbness Auditory Disturbances: 0-None Visual Disturbances: 0-None Headache: 1-Very Mild CIWA-Ar Total Score: 20 BHS Progress Note (SOAP) Subjective: Sweating, nausea, tremor, anxious, interrupted sleep, chills Objective: 10/30/16 14:12 Last Vital Signs Temp Pulse Resp BP Pulse Ox 97.6 F 66 20 138/88 10/30/16 13:44 10/30/16 13:44 10/30/16 13:44 10/30/16 13:44 Laboratory Tests 10/29/16 10/30/16 10/30/16 15:45 07:30 07:30 WBC 3.3 L RBC 4.29 Hgb 11.0 L Hct 35.0 L MCV 81.6 MCH 25.6 L MCHC 31.3 L RDW 14.0 Plt Count 303 MPV 8.3 Sodium 142 Potassium 4.1 Chloride 109 H Carbon Dioxide 28 Anion Gap 5 L BUN 16 Creatinine 0.9 Creat Clearance w eGFR > 60 Random Glucose 81 D Calcium 8.4 L Total Bilirubin 0.4 AST 19 ALT 26 Alkaline Phosphatase 54 D Total Protein 6.0 L Albumin 3.1 L D Urine Color Dkyellow Urine Appearance Slcloudy Urine pH 5.0 Ur Specific [place] >= 1.030 H Urine Protein Negative Urine Glucose (UA) Negative Urine Ketones Negative Urine Blood 1+ H Urine Nitrite Negative Urine Bilirubin Negative Urine Urobilinogen Negative Urine RBC 4 Urine WBC 6 Ur Epithelial Cells Rare Hyaline Casts 1 Granular Casts 1 Urine Mucus Rare RPR Titer 10/30/16 07:30 WBC RBC Hgb Hct MCV MCH MCHC RDW Plt Count MPV Sodium Potassium Chloride Carbon Dioxide Anion Gap BUN Creatinine Creat Clearance w eGFR Random Glucose Calcium Total Bilirubin AST ALT Alkaline Phosphatase Total Protein Albumin Urine Color Urine Appearance Urine pH Ur Specific [place] Urine Protein Urine Glucose (UA) Urine Ketones Urine Blood Urine Nitrite Urine Bilirubin Urine Urobilinogen Urine RBC Urine WBC Ur Epithelial Cells Hyaline Casts Granular Casts Urine Mucus RPR Titer Nonreactive Labs noted: abnormal UA Assessment: 10/30/16 14:13 Withdrawal symptoms Noted with abnormal UA Plan: Continue detox Abnormal UA: encouraged to drink lots of water, repeat UA
[2016-10-30] MEDS: THIAMINE HCL 100 MG TABLET (FP) PO SCH (22:38)
[2016-10-31] MEDS: chlordiazePOXIDE HCL 25 MG CAPSULE PO SCH ×2 (05:36→10:35)
[2016-10-31 10:15] LABS: URINE APPEARANCE CLEAR; URINE BILIRUBIN NEGATIVE (NEGATIVE); URINE BLOOD NEGATIVE (NEGATIVE); URINE COLOR LTYELLOW; URINE GLUCOSE (UA) NEGATIVE (NEGATIVE); URINE KETONE NEGATIVE (NEGATIVE); URINE LEUK ESTERASE TRACE (NEGATIVE); URINE NITRITE NEGATIVE (NEGATIVE); URINE PROTEIN NEGATIVE (NEGATIVE); URINE UROBILINOGEN NEGATIVE mg/dL (0.2-1.0)
--- NOTE | 2016-10-31 10:28 | CONSULT ---
[facility] Psychiatric Consult - Data Date of interview: 10/31/16 Admission source: [facility] Identifying data: Readmission to [facility] for this 55 y/o AA male seeking detox treatment on for alcohol and cocaine dependence.Patient is ,a father of two,homeless,unemployed and currently deprived of any source of income. Substance Abuse History: Discussed with the patient in this interview.Mr Argueta validates this report about his addictions. Smoking Cessation. Smoking history : Current every day smoker. Have you smoked in the past 12 months: Yes. Aproximately how many cigarettes per day: 5. Cigars Per Day: 0. Hx Chewing Tobacco Use: No. Initiated information on smoking cessation: Yes. 'Breaking Loose' booklet given: 10/29/16 (give on floor). - Substance & Tx. History. Hx Alcohol Use: Yes. Hx Substance Use: Yes. Substance Use Type: Alcohol, Cocaine. Hx Substance Use Treatment: Yes (detox, rehab). - Substances Abused. Alcohol. Route: Oral. Frequency: Daily. Amount used: seven 40 oz beers. Age of first use: 15. Date of Last Use: 10/29/16. Cocaine. Route: Smoking. Frequency: 3-6 times per week. Amount used: $50. Age of first use: 49. Date of Last Use: 10/29/16 Medical History: Remarkable for hypertension and abdominal hernia. Psychiatric History: No history of psychiatric hospitalizations.Mr Argueta indicates that he was diagnosed with Bipolar Disorder,years ago,during his incarceration at [facility] (served a seven year sentence) in [facility].Patient states that he has stopped taking psychotropic medications ( seroquel and trazodone) since his discharge from [facility] in September 2016." They make me feel too sleepy." No OPD care.Patient declines to resume medications other than the components of his detox protocol.No history of suicide attempts. Physical/Sexual Abuse/Trauma History: Patient denies. Additional Comment: Urine Drug Screen Results: HERMINIO-Cocaine.Noted. Mental Status Exam - Mental Status Exam Alert and Oriented to: Time, Place, Person Cognitive Function: Good Patient Appearance: Well Groomed Mood: Withdrawn, Euthymic Affect: Normal Range Patient Behavior: Fatigued, Cooperative Speech Pattern: Clear, Appropriate Voice Loudness: Normal Thought Process: Goal Oriented Thought Disorder: Not Present Hallucinations: Denies Suicidal Ideation: Denies Homicidal Ideation: Denies Insight/Judgement: Poor Sleep: Poorly, Difficulty falling asleep Appetite: Good Muscle strength/Tone: Normal Gait/Station: Normal Psychiatric Findings - Problem List ([place] 1, 2,3) (1) Alcohol dependence with uncomplicated withdrawal Current Visit: Yes Status: Acute (2) Cocaine dependence Current Visit: Yes Status: Acute Qualifiers: Substance use status: uncomplicated Qualified Code(s): F14.20 - Cocaine dependence, uncomplicated (3) Nicotine dependence Current Visit: Yes Status: Acute Qualifiers: Nicotine product type: cigarettes Substance use status: uncomplicated Qualified Code(s): F17.210 - Nicotine dependence, cigarettes, uncomplicated (4) Drug-induced mood disorder Current Visit: Yes Status: Acute (5) Insomnia Current Visit: Yes Status: Chronic Qualifiers: Insomnia type: unspecified Qualified Code(s): G47.00 - Insomnia, unspecified (6) History of hypertension Current Visit: Yes Status: Chronic - Initial Treatment Plan Initial Treatment Plan: Psychoeducation.Detoxification.Patient accepts trial of zolpidem to address his insomnia.Made aware of potential for parasomnias.Observation.
[2016-10-31] MEDS: PRENATAL VITAMINS W/ FOLIC ACID TABLET (FP) PO SCH (10:35)
[2016-10-31 10:39] LABS: URINE MUCUS RARE; URINE RBC 2 /hpf (0-3); URINE WBC 12 /hpf (3-5)
--- NOTE | 2016-10-31 16:11 | PN ---
[facility] CIWA - CIWA Score Nausea/Vomitin-No Nausea/No Vomiting Muscle Tremors: 2 Anxiety: 3 Agitation: 2 Paroxysmal Sweats: 3 Orientation: 0-Oriented Tacttile Disturbances: 0-None Auditory Disturbances: 0-None Visual Disturbances: 0-None Headache: 0-None Present CIWA-Ar Total Score: 10 S Progress Note (SOAP) Subjective: Anxiety,tremors,sweating,interrupted sleep,restless Objective: 10/31/16 16:10 Vital Signs - 8 hr 10/31/16 10/31/16 09:07 13:32 Temperature 97.8 F 97.4 F L Pulse Rate 82 61 Respiratory 18 18 Rate Blood Pressure 119/76 140/81 Laboratory Tests 10/29/16 10/30/16 10/30/16 15:45 07:30 07:30 WBC 3.3 L RBC 4.29 Hgb 11.0 L Hct 35.0 L MCV 81.6 MCH 25.6 L MCHC 31.3 L RDW 14.0 Plt Count 303 MPV 8.3 Sodium 142 Potassium 4.1 Chloride 109 H Carbon Dioxide 28 Anion Gap 5 L BUN 16 Creatinine 0.9 Creat Clearance w eGFR > 60 Random Glucose 81 D Calcium 8.4 L Total Bilirubin 0.4 AST 19 ALT 26 Alkaline Phosphatase 54 D Total Protein 6.0 L Albumin 3.1 L D Urine Color Dkyellow Urine Appearance Slcloudy Urine pH 5.0 Ur [address] [place] >= 1.030 H Urine Protein Negative Urine Glucose (UA) Negative Urine Ketones Negative Urine Blood 1+ H Urine Nitrite Negative Urine Bilirubin Negative Urine Urobilinogen Negative Urine RBC 4 Urine WBC 6 Ur Epithelial Cells Rare Hyaline Casts 1 Granular Casts 1 Urine Mucus Rare RPR Titer 10/30/16 10/31/16 07:30 07:50 WBC RBC Hgb Hct MCV MCH MCHC RDW Plt Count MPV Sodium Potassium Chloride Carbon Dioxide Anion Gap BUN Creatinine Creat Clearance w eGFR Random Glucose Calcium Total Bilirubin AST ALT Alkaline Phosphatase Total Protein Albumin Urine Color Ltyellow Urine Appearance Clear Urine pH 6.[address] [place] 1.020 Urine Protein Negative Urine Glucose (UA) Negative Urine Ketones Negative Urine Blood Negative Urine Nitrite Negative Urine Bilirubin Negative Urine Urobilinogen Negative Urine RBC 2 Urine WBC 12 Ur Epithelial Cells Rare Hyaline Casts Granular Casts Urine Mucus Rare RPR Titer Nonreactive labs noted Assessment: 10/31/16 16:10 Withdrawal sx. Plan: Continue detox
[2016-10-31] MEDS: chlordiazePOXIDE 5 MG CAPSULE PO SCH ×2 (17:17→22:24)
[2016-10-31] MEDS ORDERED: ZOLPIDEM TARTRATE 10 MG TABLET (PARK CARE ONLY) PO PRN (22:00)
[2016-10-31] MEDS: THIAMINE HCL 100 MG TABLET (FP) PO SCH (22:24)
[2016-11-01] MEDS: chlordiazePOXIDE 5 MG CAPSULE PO SCH (05:36)
[2016-11-01 06:32] VITALS: TEMP 96.9
[2016-11-01 09:26] VITALS: BP 137/55; PULSE 83
--- NOTE | 2016-11-01 13:25 | DS ---
[facility] Detox Discharge Summary Admission Date: 10/29/16 Discharge Date: 11/01/16 - History Present History: Alcohol Dependence, Cocaine Dependence Additional Comments: PATIENT DOES NOT WISH TO STAY TO COMPLETE DETOX REGIMEN. PATIENT ADVISED TO GO IMMEDIATELY TO NEAREST ER SHOULD ANY INTOLERABLE DETOX SYMPTOMS DEVELOP AT ANY TIME. PATIENT LEFT DETOX UNIT IN STABLE MEDICAL CONDITION. Pertinent Past History: HTN, Depression, Bipolar disorder, Nicotine Dependence, Insomnia. - Physical Exam Results Vital Signs: Vital Signs Temperature 96.9 F L 11/01/16 09:26 Pulse Rate 83 11/01/16 09:26 Respiratory Rate 18 11/01/16 09:26 Blood Pressure 137/55 11/01/16 09:26 O2 Sat by Pulse Oximetry (%) Pertinent Admission Physical Exam Findings: WITHDRAWAL SYMPTOMS. Laboratory Tests 10/29/16 10/30/16 10/30/16 15:45 07:30 07:30 WBC 3.3 L RBC 4.29 Hgb 11.0 L Hct 35.0 L MCV 81.6 MCH 25.6 L MCHC 31.3 L RDW 14.0 Plt Count 303 MPV 8.3 Sodium 142 Potassium 4.1 Chloride 109 H Carbon Dioxide 28 Anion Gap 5 L BUN 16 Creatinine 0.9 Creat Clearance w eGFR > 60 Random Glucose 81 D Calcium 8.4 L Total Bilirubin 0.4 AST 19 ALT 26 Alkaline Phosphatase 54 D Total Protein 6.0 L Albumin 3.1 L D Urine Color Dkyellow Urine Appearance Slcloudy Urine pH 5.0 Ur Specific [place] >= 1.030 H Urine Protein Negative Urine Glucose (UA) Negative Urine Ketones Negative Urine Blood 1+ H Urine Nitrite Negative Urine Bilirubin Negative Urine Urobilinogen Negative Urine RBC 4 Urine WBC 6 Ur Epithelial Cells Rare Hyaline Casts 1 Granular Casts 1 Urine Mucus Rare RPR Titer 10/30/16 10/31/16 07:30 07:50 WBC RBC Hgb Hct MCV MCH MCHC RDW Plt Count MPV Sodium Potassium Chloride Carbon Dioxide Anion Gap BUN Creatinine Creat Clearance w eGFR Random Glucose Calcium Total Bilirubin AST ALT Alkaline Phosphatase Total Protein Albumin Urine Color Ltyellow Urine Appearance Clear Urine pH 6.0 Ur Specific [place] 1.020 Urine Protein Negative Urine Glucose (UA) Negative Urine Ketones Negative Urine Blood Negative Urine Nitrite Negative Urine Bilirubin Negative Urine Urobilinogen Negative Urine RBC 2 Urine WBC 12 Ur Epithelial Cells Rare Hyaline Casts Granular Casts Urine Mucus Rare RPR Titer Nonreactive LABS NOTED. - Treatment Hospital Course: Detoxed Safely - Medication Discharge Medications: Ambulatory Orders NK [No Known Home Medication] 10/29/16 - Diagnosis (1) Alcohol dependence with uncomplicated withdrawal Status: Acute (2) Cocaine dependence Status: Acute Qualifiers: Substance use status: uncomplicated Qualified Code(s): F14.20 - Cocaine dependence, uncomplicated (3) Drug-induced mood disorder Status: Acute (4) Nicotine dependence Status: Chronic Qualifiers: Nicotine product type: cigarettes Substance use status: uncomplicated Qualified Code(s): F17.210 - Nicotine dependence, cigarettes, uncomplicated (5) Weight loss Status: Acute (6) History of hypertension Status: Chronic (7) Insomnia Status: Chronic Qualifiers: Insomnia type: unspecified Qualified Code(s): G47.00 - Insomnia, unspecified - AMA Did Patient Leave Against Medical Advice: Yes (PATIENT DID NOT WISH TO STAY TO COMPLETE DETOX REGIMEN.)
[2016-11-01] MEDS ORDERED: chlordiazePOXIDE HCL 10 MG CAPSULE PO SCH (17:00)
== END 2016-11-01 10:11 | disposition left against medical advice (07) | DRG 770 ==
LOC: YASAS 10:35 → Y3N 12:18
PROVIDERS: ADMIT Internal Medicine; ATTEND Internal Medicine
PROC: HZ2ZZZZ Detoxification Services for Substance Abuse Treatment (ICD-10-PCS; principal; 2016-10-29)
DX: F10.230 Alcohol dependence with withdrawal, uncomplicated (principal); F14.20 Cocaine dependence, uncomplicated; F17.210 Nicotine dependence, cigarettes, uncomplicated; F19.24 Other psychoactive substance dependence with psychoactive substance-induced mood disorder; G47.00 Insomnia, unspecified; R82.90 Unspecified abnormal findings in urine; Z86.79 Personal history of other diseases of the circulatory system; Z87.898 Personal history of other specified conditions
CPT/HCPCS: 36415; 80053; 81003; 81015; 85027; 86593; 93005; 93010

== ENCOUNTER 2018-02-20 09:24 | Inpatient (IN) | payer OTHER ==
[2018-02-20 10:01] VITALS: BMI 23.4
--- NOTE | 2018-02-20 10:52 | HP ---
CIWA Score Nausea/Vomitin-No Nausea/No Vomiting Muscle Tremors: None Anxiety: 4-Mod. Anxious/Guarded Agitation: 1-Slight > Activity Paroxysmal Sweats: No Perspiration Orientation: 2-Disoriented Date<2 days Tacttile Disturbances: 0-None Auditory Disturbances: 0-None Visual Disturbances: 2-Mild Sensitivity Headache: 0-None Present CIWA-Ar Total Score: 9 - Admission Criteria [facility] Guidelines: Admission for Medically Managed Detox: Requires at least one of the followin. CIWA greater than 12 2. Seizures within the past 24 hours 3. Delirium tremens within the past 24 hours 4. Hallucinations within the past 24 hours 5. Acute intervention needed for co occurring medical disorder 6. Acute intervention needed for co occurring psychiatric disorder 7. Severe withdrawal that cannot be handled at a lower level of care (continued vomiting, continued diarrhea, abnormal vital signs) requiring intravenous medication and/or fluids 8. Admission ROS S - HPI Allergies/Adverse Reactions: Allergies Allergy/AdvReac Type Severity Reaction Status Date / Time No Known Allergies Allergy Verified 02/20/18 11:24 History of Present Illness: patient here requesting detox from etoh use , reports 8 x 40-0z /day and liquor " if I can afford it or someone else is buying it " , latest use today , denies seizures , + blackouts , + falls while intoxicated most recently 4 days ago fell on sidewalk , states had left ankle pain " it's getting better " went to [facility] Xr done " it was swollen twisted, nothing broken " , latest detox 1 year , first age of use 14 , longest sobriety 7 1/2 years while incarcerated for selling oxycodone and percocet , and 9 1/2 months released 1 mo ago , currently on parole for 3 1/2 years . [facility] aware of pt's use and referred pt to detox and rehab . Priro detox at this facility 1 yr ago . cocaine : 100 $ /day . denies IVDU , started using at age 49 , latest use today tobacco : 1/2 ppd since age 13 pmhx : denies PSHx : denies PSych : bipolar d/o , depression . 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 Exam Limitations: No Limitations - Ebola screening Have you traveled outside of the country in the last 21 days: No Have you had contact with anyone from an Ebola affected area: No Have you been sick,other than usual withdrawal symptoms: No Do you have a fever: No - Review of Systems Constitutional: See HPI EENT: reports: Other (glasses - bifocals) Respiratory: reports: No Symptoms reported Cardiac: reports: No Symptoms Reported GI: reports: No Symptoms Reported : reports: No Symptoms Reported Musculoskeletal: reports: Joint Swelling (left foot) Integumentary: reports: No Symptoms Reported Neuro: reports: No Symptoms reported Endocrine: reports: No Symptoms Reported Psychiatric: reports: Orientated x3, Anxious Patient History - Patient Medical History Hx Anemia: No Hx Asthma: No Hx Chronic Obstructive Pulmonary Disease (COPD): No Hx Cancer: No Hx Cardiac Disorders: No Hx Congestive Heart Failure: No Hx Hypertension: No Hx Hypercholesterolemia: No Hx Pacemaker: No HX Cerebrovascular Accident: No Hx Seizures: No Hx Dementia: No Hx Diabetes: No Hx Gastrointestinal Disorders: No Hx Liver Disease: No Hx Genitourinary Disorders: No Hx Sexually Transmitted Disorders: No Hx Renal Disease (ESRD): No Hx Thyroid Disease: No Hx Human Immunodeficiency Virus (HIV): No Hx Hepatitis C: No Hx Depression: Yes (no current treatment) Hx Suicide Attempt: No Hx Bipolar Disorder: Yes Hx Schizophrenia: No - Patient Surgical History Past Surgical History: No Hx Neurologic Surgery: No Hx Cataract Extraction: No Hx Cardiac Surgery: No Hx Lung Surgery: No Hx Breast Surgery: No Hx Breast Biopsy: No Hx Abdominal Surgery: No Hx Appendectomy: No Hx Cholecystectomy: No Hx Genitourinary Surgery: No Hx Section: No Hx Orthopedic Surgery: No Hx Hysterectomy: No Anesthesia Reaction: No - PPD History Date: 09/28/16 Results: 0 mm - Smoking Cessation Smoking history: Current every day smoker Have you smoked in the past 12 months: Yes Aproximately how many cigarettes per day: 5 Cigars Per Day: 0 Hx Chewing Tobacco Use: No Initiated information on smoking cessation: No - Substances Abused Alcohol Route: Oral Frequency: Daily Amount used: 7 40 oz beers Age of first use: 15 Date of Last Use: 02/20/18 Cocaine Route: Smoking Frequency: Daily Amount used: $100 Age of first use: 49 Date of Last Use: 02/20/18 Family Disease History - Family Disease History Family Disease History: Heart Disease: Father (ALCOHOL,), CA: Mother ( ALCOHOL,), Other: Father, Mother, Brother (ALCOHOL,DSA,, AIDS), Sister (, ANEURYSM, AIDS) Admission Physical Exam [facility] - Vital Signs Vital Signs: Vital Signs - 24 hr 02/20/18 09:58 Temperature 97.2 F L Pulse Rate 73 Respiratory 17 Rate Blood Pressure 115/75 - Physical General Appearance: Yes: Disheveled, Mild Distress, Anxious HEENTM: Yes: EOMI, Hearing grossly Normal, Normocephalic, Muffled/Hoarse Voice ( states " from smoking " has not seen ENT , agreeable to followup after d/c), Other (edentulous) Respiratory: Yes: Chest Non-Tender, Lungs Clear, Normal Breath Sounds Neck: Yes: No masses,lesions,Nodules, Trachea in good position Breast: Yes: Breast Exam Deferred Cardiology: Yes: Regular Rhythm, Regular Rate, S1, S2 Abdominal: Yes: Hernia (supraumbilical - states has had x 15 years " it doesn't bother me ") Genitourinary: Yes: Within Normal Limits Back: Yes: Normal Inspection Musculoskeletal: Yes: Other (left foot and ankle decreased ROM dorsiF / plantar F , tender left ankle talotibial articulation) Extremities: Yes: Other (left ankle mild edema , decreased AROM , + DP) Neurological: Yes: Other (left mild foot drop) - Diagnostic (1) Alcohol dependence with uncomplicated withdrawal Current Visit: No Status: Acute S Breath Alcohol Content Breath Alcohol Content: 0 Urine Drug Screen - Results Drug Screen Negative: No Urine Drug Screen Results: HERMINIO-Cocaine, BZO-Benzodiazepines
[2018-02-20] MEDS ORDERED: MAGNESIUM CITRATE 300 ML BOTTLE PO PRN (11:02)
[2018-02-20] MEDS ORDERED: MAG HYDROX/AL HYDROX/SIMETH 30 ML UNIT-DOSE CUP PO PRN (11:02)
[2018-02-20] MEDS ORDERED: MENTHOL/PHENOL 1 EACH UD MM PRN (11:02)
[2018-02-20] MEDS ORDERED: NICOTINE POLACRILEX 2 MG GUM BUC PRN (11:02)
[2018-02-20] MEDS ORDERED: MAGNESIUM HYDROX 2400MG/30ML ORAL SUSPENSION 30 ML CUP PO PRN (11:02)
[2018-02-20] MEDS ORDERED: ACETAMINOPHEN 325 MG TABLET (FP) PO PRN (11:02)
[2018-02-20] MEDS ORDERED: IBUPROFEN 400 MG TABLET (FP) PO PRN (11:02)
[2018-02-20] MEDS ORDERED: P-EPHED 60MG/TRIPROLIDI 2.5MG TABLET PO PRN (11:02)
[2018-02-20] MEDS ORDERED: guaiFENesin/D-METHORPHAN HB 10 ML UNIT-DOSE CUPS PO PRN (11:02)
[2018-02-20] MEDS: diazePAM 5 MG TABLET PO PRN (12:32)
[2018-02-20] MEDS: diazePAM 5 MG TABLET PO SCH ×2 (14:55→22:21)
[2018-02-20] MEDS ORDERED: MELATONIN 5 MG TABLETS PO PRN (22:00)
[2018-02-20] MEDS: THIAMINE HCL 100 MG TABLET (FP) PO SCH (22:21)
[2018-02-21] MEDS: diazePAM 5 MG TABLET PO SCH ×3 (05:33→22:16)
[2018-02-21] MEDS: PRENATAL VITAMINS W/ FOLIC ACID TABLET (FP) PO SCH (10:15)
[2018-02-21 10:18] LABS: HEMATOCRIT 34.8 % (35.4-49); HEMOGLOBIN 11.3 GM/dL (11.7-16.9); MCH 26.8 pg (25.7-33.7); MCHC 32.5 g/dl (32.0-35.9); MEAN CELL VOLUME 82.6 fl (80-96); MEAN PLT VOLUME 9.3 fl (7.5-11.1); PLATELET COUNT 283 K/MM3 (134-434); RBC 4.21 M/mm3 (4.00-5.60); RDW 13.9 % (11.9-15.9); WHITE BLOOD COUNT 5.8 K/mm3 (4.0-10.0)
[2018-02-21 10:45] LABS: ALBUMIN 3.8 g/dl (3.4-5.0); ALK PHOS 67 U/L (45-117); ANION GAP 10 MMOL/L (8-16); BILIRUBIN,TOTAL 0.6 mg/dL (0.2-1); BLOOD UREA NITROGEN 24 mg/dL (7-18); CALCIUM 8.6 mg/dL (8.5-10.1); CHLORIDE 106 mmol/L (98-107); CO2 23 mmol/L (21-32); CREATININE 1.4 mg/dL (0.55-1.3); GLUCOSE,RANDOM 198 mg/dL (74-106); POTASSIUM 4.6 mmol/L (3.5-5.1); SGOT/AST 19 U/L (15-37); SGPT/ALT 34 U/L (13-61); SODIUM 140 mmol/L (136-145)
--- NOTE | 2018-02-21 14:27 | PN ---
S CIWA - CIWA Score Nausea/Vomitin-Mild Nausea/No Vomiting Muscle Tremors: 3 Anxiety: 2 Agitation: 1-Slight > Activity Paroxysmal Sweats: 1-Minimal Palms Moist Orientation: 1-Uncertain about Date Tacttile Disturbances: 0-None Auditory Disturbances: 0-None Visual Disturbances: 0-None Headache: 2-Mild CIWA-Ar Total Score: 11 S Progress Note (SOAP) Subjective: tremor sweating anxiety Objective: 02/21/18 14:26 Vital Signs Temperature 97.6 F 02/21/18 13:50 Pulse Rate 73 02/21/18 13:50 Respiratory Rate 18 02/21/18 13:50 Blood Pressure 125/75 02/21/18 13:50 O2 Sat by Pulse Oximetry (%) Laboratory Last Values WBC 5.8 K/mm3 (4.0-10.0) 02/21/18 06:00 RBC 4.21 M/mm3 (4.00-5.60) 02/21/18 06:00 Hgb 11.3 GM/dL (11.7-16.9) L 02/21/18 06:00 Hct 34.8 % (35.4-49) L 02/21/18 06:00 MCV 82.6 fl (80-96) 02/21/18 06:00 MCH 26.8 pg (25.7-33.7) 02/21/18 06:00 MCHC 32.5 g/dl (32.0-35.9) 02/21/18 06:00 RDW 13.9 % (11.9-15.9) 02/21/18 06:00 Plt Count 283 K/MM3 (134-434) 02/21/18 06:00 MPV 9.3 fl (7.5-11.1) D 02/21/18 06:00 Sodium 140 mmol/L (136-145) 02/21/18 06:00 Potassium 4.6 mmol/L (3.5-5.1) 02/21/18 06:00 Chloride 106 mmol/L (98-107) 02/21/18 06:00 Carbon Dioxide 23 mmol/L (21-32) 02/21/18 06:00 Anion Gap 10 MMOL/L (8-16) 02/21/18 06:00 BUN 24 mg/dL (7-18) H 02/21/18 06:00 Creatinine 1.4 mg/dL (0.55-1.3) H 02/21/18 06:00 Creat Clearance w eGFR 52.05 (>60) 02/21/18 06:00 Random Glucose 198 mg/dL (74-106) H 02/21/18 06:00 Calcium 8.6 mg/dL (8.5-10.1) 02/21/18 06:00 Total Bilirubin 0.6 mg/dL (0.2-1) 02/21/18 06:00 AST 19 U/L (15-37) 02/21/18 06:00 ALT 34 U/L (13-61) 02/21/18 06:00 Alkaline Phosphatase 67 U/L (45-117) 02/21/18 06:00 Total Protein 7.0 g/dl (6.4-8.2) 02/21/18 06:00 Albumin 3.8 g/dl (3.4-5.0) 02/21/18 06:00 RPR Titer Nonreactive (NONREACTIVE) 02/21/18 06:00 lab noted Assessment: 02/21/18 14:27 withdrawal sx Plan: continue detox
[2018-02-21] MEDS: THIAMINE HCL 100 MG TABLET (FP) PO SCH (22:16)
[2018-02-22] MEDS: diazePAM 5 MG TABLET PO PRN (05:56)
[2018-02-22] MEDS ORDERED: diazePAM 5 MG TABLET PO SCH (10:00)
[2018-02-22] MEDS: PRENATAL VITAMINS W/ FOLIC ACID TABLET (FP) PO SCH (10:42)
--- NOTE | 2018-02-22 11:07 | PN ---
S CIWA - CIWA Score Nausea/Vomitin-No Nausea/No Vomiting Muscle Tremors: 3 Anxiety: 1-Mildly Anxious Agitation: 2 Paroxysmal Sweats: 1-Minimal Palms Moist Orientation: 1-Uncertain about Date Tacttile Disturbances: 0-None Auditory Disturbances: 0-None Visual Disturbances: 0-None Headache: 1-Very Mild CIWA-Ar Total Score: 9 BHS Progress Note (SOAP) Subjective: tremor sweating trouble sleep at night irritable agitative Objective: 02/22/18 11:08 Vital Signs Temperature 96.5 F L 02/22/18 09:14 Pulse Rate 72 02/22/18 09:14 Respiratory Rate 18 02/22/18 09:14 Blood Pressure 116/81 02/22/18 09:14 O2 Sat by Pulse Oximetry (%) Laboratory Last Values WBC 5.8 K/mm3 (4.0-10.0) 02/21/18 06:00 RBC 4.21 M/mm3 (4.00-5.60) 02/21/18 06:00 Hgb 11.3 GM/dL (11.7-16.9) L 02/21/18 06:00 Hct 34.8 % (35.4-49) L 02/21/18 06:00 MCV 82.6 fl (80-96) 02/21/18 06:00 MCH 26.8 pg (25.7-33.7) 02/21/18 06:00 MCHC 32.5 g/dl (32.0-35.9) 02/21/18 06:00 RDW 13.9 % (11.9-15.9) 02/21/18 06:00 Plt Count 283 K/MM3 (134-434) 02/21/18 06:00 MPV 9.3 fl (7.5-11.1) D 02/21/18 06:00 Sodium 140 mmol/L (136-145) 02/21/18 06:00 Potassium 4.6 mmol/L (3.5-5.1) 02/21/18 06:00 Chloride 106 mmol/L (98-107) 02/21/18 06:00 Carbon Dioxide 23 mmol/L (21-32) 02/21/18 06:00 Anion Gap 10 MMOL/L (8-16) 02/21/18 06:00 BUN 24 mg/dL (7-18) H 02/21/18 06:00 Creatinine 1.4 mg/dL (0.55-1.3) H 02/21/18 06:00 Creat Clearance w eGFR 52.05 (>60) 02/21/18 06:00 Random Glucose 198 mg/dL (74-106) H 02/21/18 06:00 Calcium 8.6 mg/dL (8.5-10.1) 02/21/18 06:00 Total Bilirubin 0.6 mg/dL (0.2-1) 02/21/18 06:00 AST 19 U/L (15-37) 02/21/18 06:00 ALT 34 U/L (13-61) 02/21/18 06:00 Alkaline Phosphatase 67 U/L (45-117) 02/21/18 06:00 Total Protein 7.0 g/dl (6.4-8.2) 02/21/18 06:00 Albumin 3.8 g/dl (3.4-5.0) 02/21/18 06:00 RPR Titer Nonreactive (NONREACTIVE) 02/21/18 06:00 lab noted Assessment: 02/22/18 11:08 withdrawal sx Plan: continue detox
--- NOTE | 2018-02-22 11:33 | PN ---
BHS Progress Note (SOAP) Subjective: feeling better less tremor sleep better at night discuss aftercare with staff Objective: 02/22/18 11:32 Vital Signs Temperature 96.5 F L 02/22/18 09:14 Pulse Rate 72 02/22/18 09:14 Respiratory Rate 18 02/22/18 09:14 Blood Pressure 116/81 02/22/18 09:14 O2 Sat by Pulse Oximetry (%) Laboratory Last Values WBC 5.8 K/mm3 (4.0-10.0) 02/21/18 06:00 RBC 4.21 M/mm3 (4.00-5.60) 02/21/18 06:00 Hgb 11.3 GM/dL (11.7-16.9) L 02/21/18 06:00 Hct 34.8 % (35.4-49) L 02/21/18 06:00 MCV 82.6 fl (80-96) 02/21/18 06:00 MCH 26.8 pg (25.7-33.7) 02/21/18 06:00 MCHC 32.5 g/dl (32.0-35.9) 02/21/18 06:00 RDW 13.9 % (11.9-15.9) 02/21/18 06:00 Plt Count 283 K/MM3 (134-434) 02/21/18 06:00 MPV 9.3 fl (7.5-11.1) D 02/21/18 06:00 Sodium 140 mmol/L (136-145) 02/21/18 06:00 Potassium 4.6 mmol/L (3.5-5.1) 02/21/18 06:00 Chloride 106 mmol/L (98-107) 02/21/18 06:00 Carbon Dioxide 23 mmol/L (21-32) 02/21/18 06:00 Anion Gap 10 MMOL/L (8-16) 02/21/18 06:00 BUN 24 mg/dL (7-18) H 02/21/18 06:00 Creatinine 1.4 mg/dL (0.55-1.3) H 02/21/18 06:00 Creat Clearance w eGFR 52.05 (>60) 02/21/18 06:00 Random Glucose 198 mg/dL (74-106) H 02/21/18 06:00 Calcium 8.6 mg/dL (8.5-10.1) 02/21/18 06:00 Total Bilirubin 0.6 mg/dL (0.2-1) 02/21/18 06:00 AST 19 U/L (15-37) 02/21/18 06:00 ALT 34 U/L (13-61) 02/21/18 06:00 Alkaline Phosphatase 67 U/L (45-117) 02/21/18 06:00 Total Protein 7.0 g/dl (6.4-8.2) 02/21/18 06:00 Albumin 3.8 g/dl (3.4-5.0) 02/21/18 06:00 RPR Titer Nonreactive (NONREACTIVE) 02/21/18 06:00 lab noted Assessment: 02/22/18 11:32 mild withdrawal sx Plan: continue detox
--- NOTE | 2018-02-22 13:49 | DS ---
[facility] Detox Discharge Summary Admission Date: 02/20/18 Discharge Date: 02/22/18 - History Present History: Alcohol Dependence Additional Comments: 57 years old male admitted om 02/20/18 for alcohol withdrawal stabilization completed detox regimen today as scheduled patient is alert no suicidal no homocidal ideation aftercare [facility] - Physical Exam Results Vital Signs: Vital Signs Temperature 96.1 F L 02/22/18 13:07 Pulse Rate 72 02/22/18 13:07 Respiratory Rate 18 02/22/18 13:07 Blood Pressure 126/82 02/22/18 13:07 O2 Sat by Pulse Oximetry (%) Pertinent Admission Physical Exam Findings: alcohol withdrawal sx Laboratory Last Values WBC 5.8 K/mm3 (4.0-10.0) 02/21/18 06:00 RBC 4.21 M/mm3 (4.00-5.60) 02/21/18 06:00 Hgb 11.3 GM/dL (11.7-16.9) L 02/21/18 06:00 Hct 34.8 % (35.4-49) L 02/21/18 06:00 MCV 82.6 fl (80-96) 02/21/18 06:00 MCH 26.8 pg (25.7-33.7) 02/21/18 06:00 MCHC 32.5 g/dl (32.0-35.9) 02/21/18 06:00 RDW 13.9 % (11.9-15.9) 02/21/18 06:00 Plt Count 283 K/MM3 (134-434) 02/21/18 06:00 MPV 9.3 fl (7.5-11.1) D 02/21/18 06:00 Sodium 140 mmol/L (136-145) 02/21/18 06:00 Potassium 4.6 mmol/L (3.5-5.1) 02/21/18 06:00 Chloride 106 mmol/L (98-107) 02/21/18 06:00 Carbon Dioxide 23 mmol/L (21-32) 02/21/18 06:00 Anion Gap 10 MMOL/L (8-16) 02/21/18 06:00 BUN 24 mg/dL (7-18) H 02/21/18 06:00 Creatinine 1.4 mg/dL (0.55-1.3) H 02/21/18 06:00 Creat Clearance w eGFR 52.05 (>60) 02/21/18 06:00 Random Glucose 198 mg/dL (74-106) H 02/21/18 06:00 Calcium 8.6 mg/dL (8.5-10.1) 02/21/18 06:00 Total Bilirubin 0.6 mg/dL (0.2-1) 02/21/18 06:00 AST 19 U/L (15-37) 02/21/18 06:00 ALT 34 U/L (13-61) 02/21/18 06:00 Alkaline Phosphatase 67 U/L (45-117) 02/21/18 06:00 Total Protein 7.0 g/dl (6.4-8.2) 02/21/18 06:00 Albumin 3.8 g/dl (3.4-5.0) 02/21/18 06:00 RPR Titer Nonreactive (NONREACTIVE) 02/21/18 06:00 lab noted - Treatment Hospital Course: Detox Protocol Followed, Detoxed Safely, Responded well, Discharged Condition Good, Rehab Referral Accepted Patient has Accepted a Rehab Referral to: [facility] - Medication Discharge Medications: Ambulatory Orders NK [No Known Home Medication] 10/29/16 - Diagnosis (1) Alcohol dependence with uncomplicated withdrawal Current Visit: Yes Status: Acute (2) Weight loss Current Visit: Yes Status: Acute (3) Nicotine dependence Current Visit: Yes Status: Acute Qualifiers: Nicotine product type: cigarettes Substance use status: in withdrawal Qualified Code(s): F17.213 - Nicotine dependence, cigarettes, with withdrawal - AMA Did Patient Leave Against Medical Advice: No
--- NOTE | 2018-02-22 15:19 | PN ---
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
[2018-02-22] MEDS: THIAMINE HCL 100 MG TABLET (FP) PO SCH (22:10)
[2018-02-23 06:11] VITALS: TEMP 97.3
[2018-02-23 09:14] VITALS: BP 123/76; PULSE 98
--- NOTE | 2018-02-23 19:24 | DS ---
[facility] Detox Discharge Summary Admission Date: 02/20/18 Discharge Date: 02/23/18 - History Present History: Alcohol Dependence Additional Comments: PATIENT GOING TO [facility] ([place], [place]) FOR AFTERCARE. PATIENT WAS DISCHARGED FROM UNIT IN STABLE MEDICAL CONDITION. Pertinent Past History: Depression, Bipolar Disorder. - Physical Exam Results Vital Signs: Vital Signs Temperature 97.3 F L 02/23/18 09:13 Pulse Rate 98 H 02/23/18 09:13 Respiratory Rate 20 02/23/18 09:13 Blood Pressure 123/76 02/23/18 09:13 O2 Sat by Pulse Oximetry (%) Pertinent Admission Physical Exam Findings: WITHDRAWAL SYMPTOMS. Laboratory Tests 02/21/18 02/21/18 02/21/18 06:00 06:00 06:00 WBC 5.8 RBC 4.21 Hgb 11.3 L Hct 34.8 L MCV 82.6 MCH 26.8 MCHC 32.5 RDW 13.9 Plt Count 283 MPV 9.3 D Sodium 140 Potassium 4.6 Chloride 106 Carbon Dioxide 23 Anion Gap 10 BUN 24 H Creatinine 1.4 H Creat Clearance w eGFR 52.05 Random Glucose 198 H Calcium 8.6 Total Bilirubin 0.6 AST 19 ALT 34 Alkaline Phosphatase 67 Total Protein 7.0 Albumin 3.8 RPR Titer Nonreactive LABS NOTED. - Treatment Hospital Course: Detox Protocol Followed, Detoxed Safely, Responded well, Discharged Condition Good, Rehab Referral Accepted Patient has Accepted a Rehab Referral to: [facility] ([place], [place]). - Medication Discharge Medications: Ambulatory Orders NK [No Known Home Medication] 10/29/16 - Diagnosis (1) Alcohol dependence with uncomplicated withdrawal Status: Acute - AMA Did Patient Leave Against Medical Advice: No
== END 2018-02-23 08:45 | disposition home or self-care (01) | DRG 775 ==
LOC: YASAS 09:24 → Y3N 11:46
PROVIDERS: ADMIT Neuromusculoskeletal Medicine & OMM; ATTEND Neuromusculoskeletal Medicine & OMM
PROC: HZ2ZZZZ Detoxification Services for Substance Abuse Treatment (ICD-10-PCS; principal; 2018-02-20)
DX: F10.230 Alcohol dependence with withdrawal, uncomplicated (principal); F17.210 Nicotine dependence, cigarettes, uncomplicated; F32.9 Major depressive disorder, single episode, unspecified; R63.4 Abnormal weight loss; Z68.23 Body mass index [BMI] 23.0-23.9, adult
CPT/HCPCS: 36415; 80053; 85027; 86593

== ENCOUNTER 2019-08-16 14:05 | Inpatient (IN) | payer OTHER ==
--- NOTE | 2019-08-16 14:26 | BHS.RME ---
Substance Use & Tx History - Substance Use History Alcohol Substance amount: 6 x 40 ounce beer, 2 pints Vodka Frequency of use: Daily Substance route: Oral Date of Last Use: 08/16/19 Cocaine-Crack Substance amount: $50-100 Frequency of use: Daily Substance route: Smoking Date of Last Use: 08/15/19 Nicotine Substance amount: 2 cigs Frequency of use: Daily Substance route: Smoking Date of Last Use: 08/16/19 - Last Treatment Treatment type: Substance Use Disorder (FABIANA) Where was last treatment: Detox Physical/Psych/Mental Status - Behavior General Behavior: Increased activity (restlessness, agitation) Eye Contact: Normal - Cooperativeness Cooperativeness: Cooperative - Thinking Thought Processes: Tight Thought content: Future oriented Perceptions: Hallucinations (auditory, visual, olfactory) - Physical Health Problems Is patient presently having any pain?: Yes (left side of head post fall 2 days ago) Does patient presently have any injuries (include location): Yes (as above) Does patient currently have a fever: No CIWA Nausea/Vomitin-No Nausea/No Vomiting Muscle Tremors: 3 Anxiety: 3 Agitation: 1-Slight > Activity Paroxysmal Sweats: 3 Orientation: 0-Oriented Tacttile Disturbances: 0-None Auditory Disturbances: 3-Moderate Harsh/Frighten Visual Disturbances: 2-Mild Sensitivity Headache: 0-None Present CIWA-Ar Total Score: 15
--- NOTE | 2019-08-16 14:47 | HP ---
CIWA Score Nausea/Vomitin-No Nausea/No Vomiting Muscle Tremors: 2 Anxiety: 2 Agitation: 1-Slight > Activity Paroxysmal Sweats: 3 Orientation: 0-Oriented Tacttile Disturbances: 0-None Auditory Disturbances: 3-Moderate Harsh/Frighten Visual Disturbances: 2-Mild Sensitivity Headache: 0-None Present CIWA-Ar Total Score: 13 - Admission Criteria OASAS Guidelines: Admission for Medically Managed Detox: Requires at least one of the followin. CIWA greater than 12 2. Seizures within the past 24 hours 3. Delirium tremens within the past 24 hours 4. Hallucinations within the past 24 hours 5. Acute intervention needed for co occurring medical disorder 6. Acute intervention needed for co occurring psychiatric disorder 7. Severe withdrawal that cannot be handled at a lower level of care (continued vomiting, continued diarrhea, abnormal vital signs) requiring intravenous medication and/or fluids 8. Admitting History and Physical - Admission Chief Complaint: " I Want to stop drinking" History of Present Illness: Mr Argueta is a 58 y/o M who presents to [facility] for detox from Alcohol. Patient endorses he consumes 2 pints of vodka daily; patient states he " blacked out" 2 days ago and hit his head. Pt states bystanders woke him up. He did not seek medical treatment after this injury; patient continued to drink after he was woken up from the fall. Last drink was today ~12 pm. Furthermore, patient states he smokes crack cocaine and uses about 50-100 dollars worth per day; last use was yesterday. PMH- Depression (Was on Remeron and Trazadone but stopped because he was " medicating with alcohol") SocialHx- Smokes 2 cigarettes per day. Endorses he smoked since he was 14 years old. Drinks 2 pints vodka and six 40z beers daily. Smokes 50-100 dollars worth of crack daily. SurgHx- Denies FH- Father- "heart attack". Mother- Emphysema and " cancer". 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 Psych: Yes: Anxiety, Depression Musculoskeletal: Yes: Chronic low back pain - Past Surgical History Past Surgical History: Yes: None - Smoking History Smoking history: Current every day smoker Have you smoked in the past 12 months: Yes Aproximately how many cigarettes per day: 2 - Alcohol/Substance Use Hx Alcohol Use: Yes History of Substance Use: reports: Cocaine Date of Last Use: 07/13/19 - Social History ADL: Support Services Occupation: unemployed History of Recent Travel: No Admission ROS [facility] - [facility] Allergies/Adverse Reactions: Allergies Allergy/AdvReac Type Severity Reaction Status Date / Time No Known Allergies Allergy Verified 07/13/19 09:04 Exam Limitations: No Limitations - Ebola screening Have you traveled outside of the country in the last 21 days: No Have you had contact with anyone from an Ebola affected area: No - Review of Systems Psychiatric: reports: Orientated x3 Other Systems: Reviewed and Negative Patient History - Patient Medical History Hx Anemia: No Hx Asthma: No Hx Chronic Obstructive Pulmonary Disease (COPD): No Hx Cancer: No Hx Cardiac Disorders: No Hx Congestive Heart Failure: No Hx Hypertension: No Hx Hypercholesterolemia: No Hx Pacemaker: No HX Cerebrovascular Accident: No Hx Seizures: No Hx Dementia: No Hx Diabetes: No Hx Gastrointestinal Disorders: No Hx Liver Disease: No Hx Genitourinary Disorders: No Hx Sexually Transmitted Disorders: No Hx Renal Disease (ESRD): No Hx Thyroid Disease: No Hx Human Immunodeficiency Virus (HIV): No (2019 last negative) Hx Hepatitis C: No Hx Depression: Yes (no current treatment) Hx Suicide Attempt: No Hx Bipolar Disorder: Yes Hx Schizophrenia: No - Patient Surgical History Past Surgical History: No Hx Neurologic Surgery: No Hx Cataract Extraction: No Hx Cardiac Surgery: No Hx Lung Surgery: No Hx Breast Surgery: No Hx Breast Biopsy: No Hx Abdominal Surgery: No Hx Appendectomy: No Hx Cholecystectomy: No Hx Genitourinary Surgery: No Hx Section: No Hx Orthopedic Surgery: No Hx Hysterectomy: No Anesthesia Reaction: No - PPD History Date: 07/15/19 Results: 0 mm - Smoking Cessation Smoking history: Current every day smoker Have you smoked in the past 12 months: Yes Aproximately how many cigarettes per day: 2 Cigars Per Day: 0 Hx Chewing Tobacco Use: No Initiated information on smoking cessation: Yes 'Breaking Loose' booklet given: 08/16/19 Admission Physical Exam [facility] - Physical HEENTM: Yes: Within Normal Limits, EOMI, Hearing grossly Normal, Normocephalic, Normal Voice, Other (Missing teeth. 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, Fully Oriented, Alert, Motor Strength 5/5, Normal Mood/Affect, Normal Response Integumentary: Yes: Within Normal Limits, Normal Color, Dry, Warm - Diagnostic (1) Crack cocaine use Current Visit: Yes Status: Acute (2) Alcohol dependence with uncomplicated withdrawal Current Visit: No Status: Acute Cleared for Admission [facility] - Detox or Rehab [facility] Level of Care: Medically Managed Breathalyzer - Breathalyzer Breathalyzer: 0.52 Urine Drug Screen - Test Device Lot number: [id number] Expiration date: 10/06/20 - Control Is test valid?: Yes - Results Drug screen NEGATIVE: No Urine drug screen results: HERMINIO-Cocaine, BZO-Benzodiazepines Inpatient Rehab Admission - Rehab Decision to Admit Inpatient rehab admission?: No
[2019-08-16] MEDS ORDERED: MAGNESIUM HYDROX 2400MG/30ML ORAL SUSPENSION 30 ML CUP PO PRN (15:11)
[2019-08-16] MEDS ORDERED: BISMUTH SUBSALICYLATE 524 MG/30 ML UD PO PRN (15:11)
[2019-08-16] MEDS ORDERED: ONDANSETRON *ODT* 4 MG TABLET SL ONE (15:11)
[2019-08-16] MEDS ORDERED: MAGNESIUM CITRATE 300 ML BOTTLE PO PRN (15:11)
[2019-08-16] MEDS ORDERED: NICOTINE POLACRILEX 2 MG GUM BUC PRN (15:11)
[2019-08-16] MEDS ORDERED: chlordiazePOXIDE HCL 25 MG CAPSULE PO PRN (15:11)
[2019-08-16] MEDS ORDERED: METHOCARBAMOL 500 MG TABLET PO PRN (15:11)
[2019-08-16] MEDS ORDERED: MAG HYDROX/AL HYDROX/SIMETH 30 ML UNIT-DOSE CUP PO PRN (15:11)
[2019-08-16] MEDS ORDERED: ACETAMINOPHEN 325 MG TABLET (FP) PO PRN ×2 (15:11)
[2019-08-16] MEDS ORDERED: IBUPROFEN 400 MG TABLET (FP) PO PRN (15:11)
[2019-08-16 16:05] VITALS: BMI 24.4
[2019-08-16] MEDS: NICOTINE 7 MG/24 HOURS TOPICAL PATCH TD SCH (16:42)
[2019-08-16] MEDS: PRENATAL VITAMINS W/ FOLIC ACID TABLET (FP) PO SCH (16:50)
[2019-08-16] MEDS: hydrOXYzine PAMOATE 25 MG CAPSULE (FP) PO SCH ×2 (17:19→22:01)
[2019-08-16] MEDS: chlordiazePOXIDE HCL 25 MG CAPSULE PO SCH ×2 (17:19→22:01)
[2019-08-16] MEDS: THIAMINE HCL 100 MG TABLET (FP) PO SCH (22:01)
[2019-08-16] MEDS: MELATONIN 5 MG TABLETS PO SCH (22:01)
[2019-08-17] MEDS: hydrOXYzine PAMOATE 25 MG CAPSULE (FP) PO SCH ×5 (05:34→22:09)
[2019-08-17] MEDS: chlordiazePOXIDE HCL 25 MG CAPSULE PO SCH ×4 (05:34→22:09)
[2019-08-17] MEDS: NICOTINE 7 MG/24 HOURS TOPICAL PATCH TD SCH (10:14)
[2019-08-17] MEDS: PRENATAL VITAMINS W/ FOLIC ACID TABLET (FP) PO SCH (10:16)
--- NOTE | 2019-08-17 11:36 | EKG ---
Test Reason : Blood Pressure : / mmHG Vent. Rate : 053 BPM Atrial Rate : 053 BPM P-R Int : 138 ms QRS Dur : 082 ms QT Int : 404 ms P-R-T Axes : 077 076 060 degrees QTc Int : 379 ms SINUS BRADYCARDIA OTHERWISE NORMAL ECG WHEN COMPARED WITH ECG OF 29-OCT-2016 14:54, QT HAS SHORTENED Confirmed by ANTONIA QUIGLEY MD ([id number]) on 08/17/2019 11:36:24 AM Referred By: Confirmed By:ANTONIA QUIGLEY MD
[2019-08-17 11:43] LABS: HEMATOCRIT 36.6 % (35.4-49); HEMOGLOBIN 11.4 GM/dL (11.7-16.9); MCH 26.1 pg (25.7-33.7); MCHC 31.3 g/dl (32.0-35.9); MEAN CELL VOLUME 83.4 fl (80-96); MEAN PLT VOLUME 9.2 fl (7.5-11.1); PLATELET COUNT 254 K/MM3 (134-434); RBC 4.39 M/mm3 (4.00-5.60); RDW 14.8 % (11.9-15.9); WHITE BLOOD COUNT 3.9 K/mm3 (4.0-10.0)
[2019-08-17 11:50] LABS: ALBUMIN 2.9 g/dl (3.4-5.0); BILIRUBIN,TOTAL 0.5 mg/dL (0.2-1); BLOOD UREA NITROGEN 16.9 mg/dL (7-18); CALCIUM 8.9 mg/dL (8.5-10.1); CREATININE 0.9 mg/dL (0.55-1.3); MAGNESIUM 2.1 mg/dL (1.8-2.4); PHOSPHOROUS 4.4 mg/dL (2.5-4.9); POTASSIUM 4.4 mmol/L (3.5-5.1); TOT PROT 5.6 g/dl (6.4-8.2)
[2019-08-17] MEDS ORDERED: PNEUMOC 13-VAL CONJ-DIP CRM/PF 0.5 ML DISP.SYRIN IM ONE (12:00)
--- NOTE | 2019-08-17 12:20 | CONSULT ---
[facility] Psychiatric Consult - Data Date of interview: 08/17/19 Admission source: [facility] Identifying data: Readmission to [address] [place] [address] for this 58 y/o AA male, self-referred for detoxification treatment. FABIANA issues : alcohol, nicotine, cocaine. Patient is , no dependents (two daughters are now ), homeless, unemployed and living without income. Substance Abuse History: Discussed with the patient. FABIANA issues as follows : Alcohol. Substance amount: 6 x 40 ounce beer, 2 pints Vodka. Frequency of use: Daily. Substance route: Oral. Date of Last Use: 08/16/19. Cocaine-Crack. Substance amount: $50-100. Frequency of use: Daily. Substance route: Smoking. Date of Last Use: 08/15/19. Nicotine. Substance amount: 2 cigs. Frequency of use: Daily. Substance route: Smoking. Date of Last Use: 08/16/19 Last Treatment. Treatment type: Substance Use Disorder (FABIANA). Where was last treatment: Detox. History of multiple FABIANA treatment failures. Medical History: Medical profile is remarkable for history of syncope, chronic lumbar pain, hypertension and abdominal hernia. Psychiatric History: Patient denies history of psychiatric hospitalizations, OPD care or suicide attempts. Reportedly diagnosed with Bipolar Disorder, years ago, during his incarceration at [facility] (served a seven year sentence) in [facility]. Mr Argueta states that he usually stopped taking medications after discharges from FABIANA treatment centers (detox/rehabs). In this interview, he expresses interest in resuming trazodone for insomnia. Physical/Sexual Abuse/Trauma History: Patient denies. Additional Comment: Urine drug screen results: HERMINIO-Cocaine, BZO-Benzodiazepines. Noted. Mental Status Exam - Mental Status Exam Alert and Oriented to: Time, Place, Person Cognitive Function: Grossly Intact Patient Appearance: Unkempt, Disheveled Mood: Withdrawn, Hopeful Affect: Mood Congruent, Constricted Patient Behavior: Fatigued, Appropriate, Cooperative Speech Pattern: Clear, Appropriate Voice Loudness: Normal Thought Process: Goal Oriented Thought Disorder: Not Present Hallucinations: Denies Suicidal Ideation: Denies Homicidal Ideation: Denies Insight/Judgement: Poor Sleep: Poorly, Difficulty falling asleep Appetite: Good Gait/Station: Normal Psychiatric Findings - Problem List ([place] 1, 2,3) (1) Alcohol dependence with uncomplicated withdrawal Current Visit: Yes Status: Acute (2) Cocaine dependence Current Visit: Yes Status: Chronic Qualifiers: Substance use status: uncomplicated Qualified Code(s): F14.20 - Cocaine dependence, uncomplicated (3) Nicotine dependence Current Visit: Yes Status: Chronic Qualifiers: Nicotine product type: cigarettes Substance use status: in withdrawal Qualified Code(s): F17.213 - Nicotine dependence, cigarettes, with withdrawal (4) Substance induced mood disorder Current Visit: Yes Status: Chronic (5) Insomnia Current Visit: Yes Status: Chronic Qualifiers: Insomnia type: unspecified Qualified Code(s): G47.00 - Insomnia, unspecified - Initial Treatment Plan Initial Treatment Plan: Psychoeducation. Sleep hygiene. Detoxification. Trazodone 25 mg po hs. Ordered at patient's request. Made aware of risk of priapism. Consent (verbal) granted to MD. [place].
--- NOTE | 2019-08-17 14:09 | PN ---
[facility] CIWA - CIWA Score Nausea/Vomitin-No Nausea/No Vomiting Muscle Tremors: 2 Anxiety: 3 Agitation: 2 Paroxysmal Sweats: 2 Orientation: 0-Oriented Tacttile Disturbances: 0-None Auditory Disturbances: 2-Mild Harshness/Frighten Visual Disturbances: 0-None Headache: 0-None Present CIWA-Ar Total Score: 11 S Progress Note (SOAP) Subjective: Complaints of tremors,sweats, anxiety light sensitivity. Objective: 08/17/19 14:07 Vital Signs 08/17/19 08/17/19 08:34 12:59 Temperature 96.9 F L 97.3 F L Pulse Rate 54 L 60 Respiratory 16 16 Rate Blood Pressure 139/86 124/76 O2 Sat by Pulse 98 Oximetry (%) Laboratory Last Values WBC 3.9 K/mm3 (4.0-10.0) L 08/17/19 07:55 RBC 4.39 M/mm3 (4.00-5.60) 08/17/19 07:55 Hgb 11.4 GM/dL (11.7-16.9) L 08/17/19 07:55 Hct 36.6 % (35.4-49) 08/17/19 07:55 MCV 83.4 fl (80-96) 08/17/19 07:55 MCH 26.1 pg (25.7-33.7) 08/17/19 07:55 MCHC 31.3 g/dl (32.0-35.9) L 08/17/19 07:55 RDW 14.8 % (11.9-15.9) 08/17/19 07:55 Plt Count 254 K/MM3 (134-434) D 08/17/19 07:55 MPV 9.2 fl (7.5-11.1) 08/17/19 07:55 Sodium 143 mmol/L (136-145) 08/17/19 07:55 Potassium 4.4 mmol/L (3.5-5.1) 08/17/19 07:55 Chloride 109 mmol/L (98-107) H 08/17/19 07:55 Carbon Dioxide 28 mmol/L (21-32) 08/17/19 07:55 Anion Gap 6 MMOL/L (8-16) L 08/17/19 07:55 BUN 16.9 mg/dL (7-18) 08/17/19 07:55 Creatinine 0.9 mg/dL (0.55-1.3) 08/17/19 07:55 Est GFR (CKD-EPI)AfAm 107.97 08/17/19 07:55 Est GFR (CKD-EPI)NonAf 93.16 08/17/19 07:55 Random Glucose 94 mg/dL (74-106) 08/17/19 07:55 Calcium 8.9 mg/dL (8.5-10.1) 08/17/19 07:55 Phosphorus 4.4 mg/dL (2.5-4.9) 08/17/19 07:55 Magnesium 2.1 mg/dL (1.8-2.4) 08/17/19 07:55 Total Bilirubin 0.5 mg/dL (0.2-1) 08/17/19 07:55 AST 24 U/L (15-37) 08/17/19 07:55 ALT 28 U/L (13-61) 08/17/19 07:55 Alkaline Phosphatase 54 U/L (45-117) 08/17/19 07:55 Total Protein 5.6 g/dl (6.4-8.2) L 08/17/19 07:55 Albumin 2.9 g/dl (3.4-5.0) L 08/17/19 07:55 Syphilis Serology Non-reactive (NONREACTIVE) 08/17/19 07:55 Labs noted. Assessment: 08/17/19 14:09 Alert and oriented x3, in no acute respiratory distress. Full ROM, ambulatory on unit. Withdrawal symptoms. Plan: Continue detox protocol.
[2019-08-17] MEDS: traZODone HCL 50 MG TABLET (FP) PO SCH (22:08)
[2019-08-17] MEDS: THIAMINE HCL 100 MG TABLET (FP) PO SCH (22:09)
[2019-08-17] MEDS: MELATONIN 5 MG TABLETS PO SCH (22:10)
[2019-08-18] MEDS: hydrOXYzine PAMOATE 25 MG CAPSULE (FP) PO SCH ×5 (05:40→22:00)
[2019-08-18] MEDS: chlordiazePOXIDE HCL 25 MG CAPSULE PO SCH ×4 (05:40→22:00)
[2019-08-18] MEDS: PRENATAL VITAMINS W/ FOLIC ACID TABLET (FP) PO SCH (10:22)
[2019-08-18] MEDS: NICOTINE 7 MG/24 HOURS TOPICAL PATCH TD SCH (10:22)
--- NOTE | 2019-08-18 15:58 | PN ---
[facility] CIWA - CIWA Score Nausea/Vomitin-Mild Nausea/No Vomiting Muscle Tremors: 2 Anxiety: 2 Agitation: 2 Paroxysmal Sweats: 2 Orientation: 0-Oriented Tacttile Disturbances: 0-None Auditory Disturbances: 0-None Visual Disturbances: 0-None Headache: 0-None Present CIWA-Ar Total Score: 9 [facility] Progress Note (SOAP) Subjective: Feels ok Objective: 08/18/19 15:53 Last Vital Signs Temp Pulse Resp BP Pulse Ox 97.4 F L 60 17 136/73 100 08/18/19 12:44 08/18/19 12:44 08/18/19 12:44 08/18/19 12:44 08/18/19 12:44 Elevated b/p: denies htn, not on medication Laboratory Tests 08/17/19 08/17/19 08/17/19 07:55 07:55 07:55 WBC 3.9 L RBC 4.39 Hgb 11.4 L Hct 36.6 MCV 83.4 MCH 26.1 MCHC 31.3 L RDW 14.8 Plt Count 254 D MPV 9.2 Sodium 143 Potassium 4.4 Chloride 109 H Carbon Dioxide 28 Anion Gap 6 L BUN 16.9 Creatinine 0.9 Est GFR (CKD-EPI)AfAm 107.97 Est GFR (CKD-EPI)NonAf 93.16 Random Glucose 94 Calcium 8.9 Phosphorus 4.4 Magnesium 2.1 Total Bilirubin 0.5 AST 24 ALT 28 Alkaline Phosphatase 54 Total Protein 5.6 L Albumin 2.9 L Syphilis Serology Non-reactive HIV Ag/Ab Combo Qual 08/17/19 08:10 WBC RBC Hgb Hct MCV MCH MCHC RDW Plt Count MPV Sodium Potassium Chloride Carbon Dioxide Anion Gap BUN Creatinine Est GFR (CKD-EPI)AfAm Est GFR (CKD-EPI)NonAf Random Glucose Calcium Phosphorus Magnesium Total Bilirubin AST ALT Alkaline Phosphatase Total Protein Albumin Syphilis Serology HIV Ag/Ab Combo Qual Negative Labs reviewed: total protein/albumin (low) Assessment: 08/18/19 15:56 Withdrawal sxs Noted with elevated b/p and malnutrition Plan: Continue detox Encouraged PO water intake Elevated b/p: denies htn, could be r/t withdrawal, monitor b/p, consider low sodium diet Malnutrition: encourage diet, start ensure 1 cup PO TID
[2019-08-18] MEDS: traZODone HCL 50 MG TABLET (FP) PO SCH (22:00)
[2019-08-18] MEDS: THIAMINE HCL 100 MG TABLET (FP) PO SCH (22:00)
[2019-08-18] MEDS: MELATONIN 5 MG TABLETS PO SCH (22:00)
[2019-08-19] MEDS ORDERED: chlordiazePOXIDE HCL 10 MG CAPSULE PO PRN
[2019-08-19] MEDS: chlordiazePOXIDE HCL 10 MG CAPSULE PO SCH ×4 (05:47→22:15)
[2019-08-19] MEDS: hydrOXYzine PAMOATE 25 MG CAPSULE (FP) PO SCH ×2 (05:47→10:49)
[2019-08-19] MEDS: NICOTINE 7 MG/24 HOURS TOPICAL PATCH TD SCH (10:49)
[2019-08-19] MEDS: PRENATAL VITAMINS W/ FOLIC ACID TABLET (FP) PO SCH (10:50)
[2019-08-19] MEDS: MENTHOL/PHENOL 1 EACH UD MM PRN ×3 (10:50→22:22)
--- NOTE | 2019-08-19 10:53 | PN ---
[facility] CIWA - CIWA Score Nausea/Vomitin-No Nausea/No Vomiting Muscle Tremors: 2 Anxiety: 1-Mildly Anxious Agitation: 2 Paroxysmal Sweats: 1-Minimal Palms Moist Orientation: 0-Oriented Tacttile Disturbances: 0-None Auditory Disturbances: 0-None Visual Disturbances: 0-None Headache: 0-None Present CIWA-Ar Total Score: 6 [facility] Progress Note (SOAP) Subjective: sweats body aches interrupted sleep Objective: 08/19/19 10:56 Vital Signs Temperature 96.8 F L 08/19/19 08:57 Pulse Rate 105 H 08/19/19 08:57 Respiratory Rate 16 08/19/19 08:57 Blood Pressure 132/84 08/19/19 08:57 O2 Sat by Pulse Oximetry (%) 97 08/19/19 05:53 aaox3 ambulating no acute distress Assessment: 08/19/19 10:56 withdrawals Plan: continue detox increase fluids
[2019-08-19] MEDS ORDERED: PNEUMOCOCCAL 23 VACCINE 0.5 ML VIAL IM ONE (12:00)
[2019-08-19] MEDS: THIAMINE HCL 100 MG TABLET (FP) PO SCH (22:15)
[2019-08-19] MEDS: hydrOXYzine PAMOATE 25 MG CAPSULE (FP) PO PRN (22:16)
[2019-08-19] MEDS: MELATONIN 5 MG TABLETS PO SCH (22:16)
[2019-08-19] MEDS: traZODone HCL 50 MG TABLET (FP) PO SCH (22:19)
[2019-08-20] MEDS: chlordiazePOXIDE HCL 10 MG CAPSULE PO SCH ×2 (06:14→17:35)
[2019-08-20] MEDS: MENTHOL/PHENOL 1 EACH UD MM PRN ×2 (06:15→10:26)
[2019-08-20] MEDS: PRENATAL VITAMINS W/ FOLIC ACID TABLET (FP) PO SCH (10:25)
[2019-08-20] MEDS: NICOTINE 7 MG/24 HOURS TOPICAL PATCH TD SCH (10:26)
--- NOTE | 2019-08-20 11:04 | PN ---
[facility] CIWA - CIWA Score Nausea/Vomitin-No Nausea/No Vomiting Muscle Tremors: None Anxiety: 1-Mildly Anxious Agitation: 1-Slight > Activity Paroxysmal Sweats: No Perspiration Orientation: 0-Oriented Tacttile Disturbances: 0-None Auditory Disturbances: 0-None Visual Disturbances: 0-None Headache: 0-None Present CIWA-Ar Total Score: 2 [facility] Progress Note (SOAP) Subjective: feeling better little anxious Objective: 08/20/19 11:04 Vital Signs Temperature 97.5 F L 08/20/19 08:35 Pulse Rate 70 08/20/19 08:35 Respiratory Rate 18 08/20/19 08:35 Blood Pressure 130/74 08/20/19 08:35 O2 Sat by Pulse Oximetry (%) 97 08/20/19 06:00 aaox3 ambulating no acute distress Assessment: 08/20/19 11:04 mild withdrawals Plan: complete detox d/c in am
[2019-08-20] MEDS: hydrOXYzine PAMOATE 25 MG CAPSULE (FP) PO PRN (20:41)
[2019-08-20] MEDS: THIAMINE HCL 100 MG TABLET (FP) PO SCH (21:07)
[2019-08-20] MEDS: traZODone HCL 50 MG TABLET (FP) PO SCH (21:08)
[2019-08-20] MEDS: MELATONIN 5 MG TABLETS PO SCH (21:09)
[2019-08-21] MEDS ORDERED: chlordiazePOXIDE HCL 10 MG CAPSULE PO ONE (05:00)
[2019-08-21] MEDS: MENTHOL/PHENOL 1 EACH UD MM PRN (05:41)
[2019-08-21] MEDS: PRENATAL VITAMINS W/ FOLIC ACID TABLET (FP) PO SCH (09:30)
--- NOTE | 2019-08-21 10:01 | PN ---
[facility] CIWA - CIWA Score Nausea/Vomitin-No Nausea/No Vomiting Muscle Tremors: None Anxiety: 1-Mildly Anxious Agitation: 0-Normal Activity Paroxysmal Sweats: No Perspiration Orientation: 0-Oriented Tacttile Disturbances: 0-None Auditory Disturbances: 0-None Visual Disturbances: 0-None Headache: 0-None Present CIWA-Ar Total Score: 1 S Progress Note (SOAP) Subjective: alert,no complaint Objective: 08/21/19 09:59 Vital Signs Temperature 97.3 F L 08/21/19 05:35 Pulse Rate 59 L 08/21/19 05:35 Respiratory Rate 16 08/21/19 05:35 Blood Pressure 131/70 08/21/19 05:35 O2 Sat by Pulse Oximetry (%) 95 08/21/19 05:35 Assessment: 08/21/19 10:00 detox completed,no withdrawal symptom Plan: stable for discharge today,follow up with after care program as arrangement [facility]
--- NOTE | 2019-08-21 10:02 | DS ---
[facility] Detox Discharge Summary Admission Date: 08/16/19 Discharge Date: 08/21/19 - History Present History: Alcohol Dependence, Cocaine Dependence Additional Comments: alert,oriented x3 ambulation on the unit lung clear on auscultation bilaterally abdomen soft,no distension,no pain no tenderness no edema of the legs detox completed,no withdrawal symptom stable for discharge follow up with [facility] rehab today total time of discharge 35 minutes Pertinent Past History: insomnia nicotine dependence - Physical Exam Results Vital Signs: Vital Signs Temperature 97.3 F L 08/21/19 05:35 Pulse Rate 59 L 08/21/19 05:35 Respiratory Rate 16 08/21/19 05:35 Blood Pressure 131/70 08/21/19 05:35 O2 Sat by Pulse Oximetry (%) 95 08/21/19 05:35 Pertinent Admission Physical Exam Findings: withdrawal signs and symptom Laboratory Last Values WBC 3.9 K/mm3 (4.0-10.0) L 08/17/19 07:55 RBC 4.39 M/mm3 (4.00-5.60) 08/17/19 07:55 Hgb 11.4 GM/dL (11.7-16.9) L 08/17/19 07:55 Hct 36.6 % (35.4-49) 08/17/19 07:55 MCV 83.4 fl (80-96) 08/17/19 07:55 MCH 26.1 pg (25.7-33.7) 08/17/19 07:55 MCHC 31.3 g/dl (32.0-35.9) L 08/17/19 07:55 RDW 14.8 % (11.9-15.9) 08/17/19 07:55 Plt Count 254 K/MM3 (134-434) D 08/17/19 07:55 MPV 9.2 fl (7.5-11.1) 08/17/19 07:55 Sodium 143 mmol/L (136-145) 08/17/19 07:55 Potassium 4.4 mmol/L (3.5-5.1) 08/17/19 07:55 Chloride 109 mmol/L (98-107) H 08/17/19 07:55 Carbon Dioxide 28 mmol/L (21-32) 08/17/19 07:55 Anion Gap 6 MMOL/L (8-16) L 08/17/19 07:55 BUN 16.9 mg/dL (7-18) 08/17/19 07:55 Creatinine 0.9 mg/dL (0.55-1.3) 08/17/19 07:55 Est GFR (CKD-EPI)AfAm 107.97 08/17/19 07:55 Est GFR (CKD-EPI)NonAf 93.16 08/17/19 07:55 Random Glucose 94 mg/dL (74-106) 08/17/19 07:55 Calcium 8.9 mg/dL (8.5-10.1) 08/17/19 07:55 Phosphorus 4.4 mg/dL (2.5-4.9) 08/17/19 07:55 Magnesium 2.1 mg/dL (1.8-2.4) 08/17/19 07:55 Total Bilirubin 0.5 mg/dL (0.2-1) 08/17/19 07:55 AST 24 U/L (15-37) 08/17/19 07:55 ALT 28 U/L (13-61) 08/17/19 07:55 Alkaline Phosphatase 54 U/L (45-117) 08/17/19 07:55 Total Protein 5.6 g/dl (6.4-8.2) L 08/17/19 07:55 Albumin 2.9 g/dl (3.4-5.0) L 08/17/19 07:55 Syphilis Serology Non-reactive (NONREACTIVE) 08/17/19 07:55 COVID-19 ([facility]ARAH) Not detected (Not Detected) 08/16/19 16:00 HIV Ag/Ab Combo Qual Negative (NEGATIVE) 08/17/19 08:10 Vital Signs Temperature 97.3 F L 08/21/19 05:35 Pulse Rate 59 L 08/21/19 05:35 Respiratory Rate 16 08/21/19 05:35 Blood Pressure 131/70 08/21/19 05:35 O2 Sat by Pulse Oximetry (%) 95 08/21/19 05:35 - Treatment Hospital Course: Detox Protocol Followed, Detoxed Safely, Responded well, Discharged Condition Good, Rehab Referral Accepted Patient has Accepted a Rehab Referral to: [facility] - Medication Discharge Medications: Ambulatory Orders NK [No Known Home Medication] 09/23/17 - Diagnosis (1) Alcohol dependence with uncomplicated withdrawal Current Visit: Yes Status: Acute (2) Cocaine dependence Current Visit: Yes Status: Chronic Qualifiers: Substance use status: uncomplicated Qualified Code(s): F14.20 - Cocaine dependence, uncomplicated (3) Insomnia Current Visit: Yes Status: Chronic Qualifiers: Insomnia type: unspecified Qualified Code(s): G47.00 - Insomnia, unspecified (4) Nicotine dependence Current Visit: Yes Status: Chronic Qualifiers: Nicotine product type: cigarettes Substance use status: in withdrawal Qualified Code(s): F17.213 - Nicotine dependence, cigarettes, with withdrawal (5) Substance-induced sleep disorder Current Visit: No Status: Acute - AMA Did Patient Leave Against Medical Advice: No
[2019-08-21 10:57] VITALS: BP 144/79; PULSE 74; TEMP 97.5
== END 2019-08-21 11:23 | disposition home or self-care (01) | DRG 774 ==
LOC: YASAS 14:05 → Y6N 15:42
PROVIDERS: ADMIT Allergy & Immunology; ATTEND Allergy & Immunology
PROC: HZ2ZZZZ Detoxification Services for Substance Abuse Treatment (ICD-10-PCS; principal; 2019-08-16)
DX: F10.230 Alcohol dependence with withdrawal, uncomplicated (principal); F14.20 Cocaine dependence, uncomplicated; F17.213 Nicotine dependence, cigarettes, with withdrawal; F19.24 Other psychoactive substance dependence with psychoactive substance-induced mood disorder; F32.9 Major depressive disorder, single episode, unspecified; G47.00 Insomnia, unspecified; I10 Essential (primary) hypertension; E46 Unspecified protein-calorie malnutrition; Z68.24 Body mass index [BMI] 24.0-24.9, adult; M54.5 Low back pain; G89.29 Other chronic pain; R03.0 Elevated blood-pressure reading, without diagnosis of hypertension; K46.9 Unspecified abdominal hernia without obstruction or gangrene; Z59.0 Homelessness; Z56.0 Unemployment, unspecified
CPT/HCPCS: 36415; 80053; 83735; 84100; 85027; 86780; 87389; 90732; 93005; 93010; G0009; Q0162; U0003

== ENCOUNTER 2020-01-01 10:18 | Inpatient (IN) | payer OTHER ==
[2020-01-01 11:22] VITALS: BMI 27.1
[2020-01-01] MEDS ORDERED: IBUPROFEN 400 MG TABLET (FP) PO PRN (11:40)
[2020-01-01] MEDS ORDERED: chlordiazePOXIDE HCL 25 MG CAPSULE PO PRN (11:40)
[2020-01-01] MEDS ORDERED: MAGNESIUM HYDROX 2400MG/30ML ORAL SUSPENSION 30 ML CUP PO PRN (11:40)
[2020-01-01] MEDS ORDERED: ACETAMINOPHEN 325 MG TABLET (FP) PO PRN ×2 (11:40)
[2020-01-01] MEDS ORDERED: BISMUTH SUBSALICYLATE 524 MG/30 ML UD PO PRN (11:40)
[2020-01-01] MEDS ORDERED: ONDANSETRON *ODT* 4 MG TABLET SL PRN (11:40)
[2020-01-01] MEDS ORDERED: MAG HYDROX/AL HYDROX/SIMETH 30 ML UNIT-DOSE CUP PO PRN (11:40)
[2020-01-01] MEDS ORDERED: MENTHOL/PHENOL 1 EACH UD MM PRN (11:40)
[2020-01-01] MEDS ORDERED: NICOTINE POLACRILEX 2 MG GUM BUC PRN (11:40)
[2020-01-01] MEDS ORDERED: MAGNESIUM CITRATE 300 ML BOTTLE PO PRN (11:40)
[2020-01-01] MEDS ORDERED: METHOCARBAMOL 500 MG TABLET PO PRN (11:40)
[2020-01-01] MEDS ORDERED: BENZOCAINE/MENTH/CETYLPYRD CL 1 EACH LOZENGE MM PRN (11:43)
[2020-01-01] MEDS ORDERED: ALBUTEROL SO4 HFA INHALER IH PRN (11:47)
[2020-01-01] MEDS: PRENATAL VITAMINS W/ FOLIC ACID TABLET (FP) PO SCH (12:17)
[2020-01-01] MEDS: chlordiazePOXIDE HCL 25 MG CAPSULE PO SCH ×3 (12:17→22:38)
[2020-01-01] MEDS: hydrOXYzine PAMOATE 25 MG CAPSULE (FP) PO SCH ×3 (14:11→22:39)
[2020-01-01 14:57] LABS: HEMATOCRIT 34.1 % (35.4-49); HEMOGLOBIN 10.6 GM/dL (11.7-16.9); MCH 25.6 pg (25.7-33.7); MEAN CELL VOLUME 82.7 fl (80-96); MEAN PLT VOLUME 8.8 fl (7.5-11.1); PLATELET COUNT 337 K/MM3 (134-434); RBC 4.13 M/mm3 (4.00-5.60); RDW 14.8 % (11.9-15.9); WHITE BLOOD COUNT 7.2 K/mm3 (4.0-10.0)
[2020-01-01 15:07] LABS: POTASSIUM 4.3 mmol/L (3.5-5.1)
[2020-01-01 15:13] LABS: ALBUMIN 3.7 g/dl (3.4-5.0)
[2020-01-01 15:14] LABS: BLOOD UREA NITROGEN 16.9 mg/dL (7-18); CALCIUM 8.8 mg/dL (8.5-10.1)
[2020-01-01 15:16] LABS: CREATININE 1.1 mg/dL (0.55-1.3)
[2020-01-01 15:18] LABS: TOT PROT 6.9 g/dl (6.4-8.2)
[2020-01-01 16:06] LABS: HIV INTERPRETATION NEGATIVE (NEGATIVE)
[2020-01-01] MEDS: MELATONIN 5 MG TABLETS PO SCH (22:38)
[2020-01-01] MEDS: THIAMINE HCL 100 MG TABLET (FP) PO SCH (22:38)
[2020-01-02] MEDS: chlordiazePOXIDE HCL 25 MG CAPSULE PO SCH ×4 (05:46→22:37)
[2020-01-02] MEDS: hydrOXYzine PAMOATE 25 MG CAPSULE (FP) PO SCH ×5 (05:46→22:37)
[2020-01-02] MEDS: PRENATAL VITAMINS W/ FOLIC ACID TABLET (FP) PO SCH (10:10)
[2020-01-02] MEDS ORDERED: FERROUS SO4 325 MG TABLET (FP) PO SCH (11:30)
[2020-01-02] MEDS: THIAMINE HCL 100 MG TABLET (FP) PO SCH (22:37)
[2020-01-02] MEDS: MELATONIN 5 MG TABLETS PO SCH (22:37)
[2020-01-03] MEDS ORDERED: chlordiazePOXIDE HCL 25 MG CAPSULE PO SCH (05:00)
[2020-01-03] MEDS: hydrOXYzine PAMOATE 25 MG CAPSULE (FP) PO SCH (06:13)
[2020-01-03 09:11] VITALS: BP 140/86; PULSE 80; TEMP 93.3
[2020-01-04] MEDS ORDERED: chlordiazePOXIDE HCL 10 MG CAPSULE PO PRN
[2020-01-04] MEDS ORDERED: chlordiazePOXIDE HCL 10 MG CAPSULE PO SCH (05:00)
[2020-01-05] MEDS ORDERED: chlordiazePOXIDE HCL 10 MG CAPSULE PO SCH (05:00)
[2020-01-06] MEDS ORDERED: chlordiazePOXIDE HCL 10 MG CAPSULE PO ONE (05:00)
== END 2020-01-03 09:42 | disposition left against medical advice (07) | DRG 770 ==
LOC: YASAS 10:18 → Y3N 11:31
PROVIDERS: ADMIT Allergy & Immunology; ATTEND Allergy & Immunology
PROC: HZ2ZZZZ Detoxification Services for Substance Abuse Treatment (ICD-10-PCS; principal; 2020-01-01)
DX: F10.230 Alcohol dependence with withdrawal, uncomplicated (principal); F14.20 Cocaine dependence, uncomplicated; F17.213 Nicotine dependence, cigarettes, with withdrawal; F19.282 Other psychoactive substance dependence with psychoactive substance-induced sleep disorder; F31.81 Bipolar II disorder; F41.9 Anxiety disorder, unspecified; D64.9 Anemia, unspecified; I10 Essential (primary) hypertension; J44.9 Chronic obstructive pulmonary disease, unspecified; K42.9 Umbilical hernia without obstruction or gangrene; M54.5 Low back pain; G89.29 Other chronic pain; R60.0 Localized edema; R63.4 Abnormal weight loss; Z68.27 Body mass index [BMI] 27.0-27.9, adult
CPT/HCPCS: 36415; 80053; 82947; 85027; 86780; 87389; C9803; U0003

== ENCOUNTER 2020-03-13 20:45 | Inpatient (IN) | payer OTHER ==
[2020-03-14] MEDS ORDERED: MAGNESIUM CITRATE 300 ML BOTTLE PO PRN (03:22)
[2020-03-14] MEDS ORDERED: MAG HYDROX/AL HYDROX/SIMETH 30 ML UNIT-DOSE CUP PO PRN (03:22)
[2020-03-14] MEDS ORDERED: NICOTINE POLACRILEX 2 MG GUM BUC PRN (03:22)
[2020-03-14] MEDS ORDERED: ONDANSETRON *ODT* 4 MG TABLET SL PRN (03:22)
[2020-03-14] MEDS ORDERED: chlordiazePOXIDE HCL 25 MG CAPSULE PO PRN (03:22)
[2020-03-14] MEDS ORDERED: BISMUTH SUBSALICYLATE 524 MG/30 ML UD PO PRN (03:22)
[2020-03-14] MEDS ORDERED: ACETAMINOPHEN 325 MG TABLET (FP) PO PRN ×2 (03:22)
[2020-03-14] MEDS ORDERED: MAGNESIUM HYDROX 2400MG/30ML ORAL SUSPENSION 30 ML CUP PO PRN (03:22)
[2020-03-14] MEDS ORDERED: IBUPROFEN 400 MG TABLET (FP) PO PRN (03:22)
[2020-03-14 04:12] VITALS: BMI 24.7
[2020-03-14] MEDS ORDERED: chlordiazePOXIDE HCL 25 MG CAPSULE ONE ×2 (04:17→09:27)
[2020-03-14] MEDS: chlordiazePOXIDE HCL 25 MG CAPSULE PO SCH ×4 (04:18→23:15)
[2020-03-14] MEDS: PRENATAL VITAMINS W/ FOLIC ACID TABLET (FP) PO SCH (10:13)
[2020-03-14] MEDS: NICOTINE 14 MG/24 HOURS TOPICAL PATCH TD SCH (10:18)
[2020-03-14] MEDS: traZODone HCL 50 MG TABLET (FP) PO SCH (23:14)
[2020-03-14] MEDS: THIAMINE HCL 100 MG TABLET (FP) PO SCH (23:14)
[2020-03-14] MEDS: MELATONIN 5 MG TABLETS PO SCH (23:14)
[2020-03-15] MEDS: chlordiazePOXIDE HCL 25 MG CAPSULE PO SCH ×4 (05:32→22:18)
[2020-03-15] MEDS: NICOTINE 14 MG/24 HOURS TOPICAL PATCH TD SCH (10:44)
[2020-03-15] MEDS: PRENATAL VITAMINS W/ FOLIC ACID TABLET (FP) PO SCH (10:44)
[2020-03-15] MEDS: MENTHOL/PHENOL 1 EACH UD MM PRN ×2 (10:45→18:14)
[2020-03-15 12:06] LABS: HEMATOCRIT 33.9 % (35.4-49); MCH 26.3 pg (25.7-33.7); MCHC 32.3 g/dl (32.0-35.9); MEAN CELL VOLUME 81.4 fl (80-96); MEAN PLT VOLUME 9.1 fl (7.5-11.1); PLATELET COUNT 342 K/MM3 (134-434); RBC 4.17 M/mm3 (4.00-5.60); RDW 13.5 % (11.9-15.9); WHITE BLOOD COUNT 4.9 K/mm3 (4.0-10.0)
[2020-03-15 12:14] LABS: ALBUMIN 3.4 g/dl (3.4-5.0); CALCIUM 8.8 mg/dL (8.5-10.1)
[2020-03-15 12:19] LABS: BILIRUBIN,TOTAL 0.6 mg/dL (0.2-1); TOT PROT 6.4 g/dl (6.4-8.2)
[2020-03-15] MEDS ORDERED: ALBUTEROL SO4 HFA INHALER IH PRN (15:18)
[2020-03-15] MEDS ORDERED: cloNIDine HCL 0.1 MG TABLET PO PRN (15:29)
[2020-03-15] MEDS: THIAMINE HCL 100 MG TABLET (FP) PO SCH (22:18)
[2020-03-15] MEDS: MELATONIN 5 MG TABLETS PO SCH (22:18)
[2020-03-15] MEDS: traZODone HCL 50 MG TABLET (FP) PO SCH (22:18)
[2020-03-16] MEDS ORDERED: chlordiazePOXIDE HCL 10 MG CAPSULE PO PRN
[2020-03-16] MEDS: FERROUS SO4 325 MG TABLET (FP) PO SCH ×2 (01:25→10:22)
[2020-03-16] MEDS: chlordiazePOXIDE HCL 10 MG CAPSULE PO SCH ×4 (06:40→23:25)
[2020-03-16] MEDS: PRENATAL VITAMINS W/ FOLIC ACID TABLET (FP) PO SCH (10:22)
[2020-03-16] MEDS: NICOTINE 14 MG/24 HOURS TOPICAL PATCH TD SCH (10:22)
[2020-03-16] MEDS: METHOCARBAMOL 500 MG TABLET PO PRN (10:22)
[2020-03-16] MEDS: MENTHOL/PHENOL 1 EACH UD MM PRN ×2 (10:23→17:52)
[2020-03-16] MEDS: traZODone HCL 50 MG TABLET (FP) PO SCH (23:25)
[2020-03-16] MEDS: THIAMINE HCL 100 MG TABLET (FP) PO SCH (23:25)
[2020-03-16] MEDS: MELATONIN 5 MG TABLETS PO SCH (23:25)
[2020-03-17] MEDS: chlordiazePOXIDE HCL 10 MG CAPSULE PO SCH ×2 (05:46→17:46)
[2020-03-17] MEDS: MENTHOL/PHENOL 1 EACH UD MM PRN ×2 (10:36→17:48)
[2020-03-17] MEDS: PRENATAL VITAMINS W/ FOLIC ACID TABLET (FP) PO SCH (10:36)
[2020-03-17] MEDS: NICOTINE 14 MG/24 HOURS TOPICAL PATCH TD SCH (10:36)
[2020-03-17] MEDS: METHOCARBAMOL 500 MG TABLET PO PRN (10:37)
[2020-03-17] MEDS: FERROUS SO4 325 MG TABLET (FP) PO SCH (10:37)
[2020-03-17] MEDS: THIAMINE HCL 100 MG TABLET (FP) PO SCH (21:34)
[2020-03-17] MEDS: traZODone HCL 50 MG TABLET (FP) PO SCH (21:34)
[2020-03-17] MEDS: MELATONIN 5 MG TABLETS PO SCH (21:36)
[2020-03-18] MEDS ORDERED: chlordiazePOXIDE HCL 10 MG CAPSULE PO ONE (05:00)
[2020-03-18 09:09] VITALS: BP 145/85; PULSE 80; TEMP 97.9
[2020-03-18] MEDS: FERROUS SO4 325 MG TABLET (FP) PO SCH (09:19)
[2020-03-18] MEDS: PRENATAL VITAMINS W/ FOLIC ACID TABLET (FP) PO SCH (09:19)
== END 2020-03-18 09:38 | disposition home or self-care (01) | DRG 775 ==
LOC: YASAS 20:45 → Y6N 03-14 09:10
PROVIDERS: ADMIT Allergy & Immunology; ATTEND Allergy & Immunology
PROC: HZ2ZZZZ Detoxification Services for Substance Abuse Treatment (ICD-10-PCS; principal; 2020-03-14)
DX: F10.230 Alcohol dependence with withdrawal, uncomplicated (principal); F17.210 Nicotine dependence, cigarettes, uncomplicated; F19.282 Other psychoactive substance dependence with psychoactive substance-induced sleep disorder; F32.9 Major depressive disorder, single episode, unspecified; F41.9 Anxiety disorder, unspecified; D50.9 Iron deficiency anemia, unspecified; E78.5 Hyperlipidemia, unspecified; I10 Essential (primary) hypertension; J44.9 Chronic obstructive pulmonary disease, unspecified; K42.9 Umbilical hernia without obstruction or gangrene; M54.5 Low back pain; G89.29 Other chronic pain; R73.9 Hyperglycemia, unspecified; Z56.0 Unemployment, unspecified; Z59.0 Homelessness
CPT/HCPCS: 36415; 80053; 85027; 86780; 93005; 93010; C9803; U0003

== ENCOUNTER 2020-05-21 16:00 | Inpatient (IN) | payer OTHER ==
[2020-05-21 18:33] VITALS: BMI 25.8
[2020-05-21] MEDS ORDERED: P-EPHED 60MG/TRIPROLIDI 2.5MG TABLET PO PRN (20:16)
[2020-05-21] MEDS ORDERED: IBUPROFEN 400 MG TABLET (FP) PO PRN (20:16)
[2020-05-21] MEDS ORDERED: BISMUTH SUBSALICYLATE 524 MG/30 ML UD PO PRN (20:16)
[2020-05-21] MEDS ORDERED: ONDANSETRON *ODT* 4 MG TABLET SL PRN (20:16)
[2020-05-21] MEDS ORDERED: MAGNESIUM CITRATE 300 ML BOTTLE PO PRN (20:16)
[2020-05-21] MEDS ORDERED: NICOTINE POLACRILEX 2 MG GUM BUC PRN (20:16)
[2020-05-21] MEDS ORDERED: ACETAMINOPHEN 325 MG TABLET (FP) PO PRN ×2 (20:16)
[2020-05-21] MEDS ORDERED: MAG HYDROX/AL HYDROX/SIMETH 30 ML UNIT-DOSE CUP PO PRN (20:16)
[2020-05-21] MEDS ORDERED: MAGNESIUM HYDROX 2400MG/30ML ORAL SUSPENSION 30 ML CUP PO PRN (20:16)
[2020-05-21] MEDS ORDERED: ALBUTEROL SO4 HFA INHALER IH PRN (20:17)
[2020-05-21] MEDS: BACITRACIN 0.9 GM PACKET TP SCH (23:19)
[2020-05-21] MEDS: diazePAM 5 MG TABLET PO SCH (23:19)
[2020-05-21] MEDS: MELATONIN 5 MG TABLETS PO SCH (23:20)
[2020-05-21] MEDS: hydrOXYzine PAMOATE 25 MG CAPSULE (FP) PO PRN (23:20)
[2020-05-21] MEDS: THIAMINE HCL 100 MG TABLET (FP) PO SCH (23:54)
[2020-05-22] MEDS: diazePAM 5 MG TABLET PO SCH ×4 (07:20→22:01)
[2020-05-22] MEDS: BACITRACIN 0.9 GM PACKET TP SCH ×2 (10:16→22:02)
[2020-05-22] MEDS: guaiFENesin 200 MG/10 ML 10 ML UNIT-DOSE CUPS PO PRN ×2 (10:16→22:04)
[2020-05-22] MEDS: PRENATAL VITAMINS W/ FOLIC ACID TABLET (FP) PO SCH (10:16)
[2020-05-22] MEDS: MENTHOL/PHENOL 1 EACH UD MM PRN ×2 (10:16→17:52)
[2020-05-22 12:15] LABS: HEMATOCRIT 35.2 % (35.4-49); HEMOGLOBIN 11.3 GM/dL (11.7-16.9); MCH 26.2 pg (25.7-33.7); MCHC 32.1 g/dl (32.0-35.9); MEAN CELL VOLUME 81.7 fl (80-96); MEAN PLT VOLUME 8.9 fl (7.5-11.1); PLATELET COUNT 345 K/MM3 (134-434); RBC 4.31 M/mm3 (4.00-5.60); RDW 14.2 % (11.9-15.9); WHITE BLOOD COUNT 4.2 K/mm3 (4.0-10.0)
[2020-05-22 12:29] LABS: CREATININE 0.9 mg/dL (0.55-1.3)
[2020-05-22 12:32] LABS: ALBUMIN 3.1 g/dl (3.4-5.0); BLOOD UREA NITROGEN 14.1 mg/dL (7-18); CALCIUM 8.8 mg/dL (8.5-10.1)
[2020-05-22 12:33] LABS: BILIRUBIN,TOTAL 0.6 mg/dL (0.2-1); TOT PROT 6.1 g/dl (6.4-8.2)
[2020-05-22] MEDS: hydrOXYzine PAMOATE 25 MG CAPSULE (FP) PO PRN (17:50)
[2020-05-22] MEDS: THIAMINE HCL 100 MG TABLET (FP) PO SCH (22:02)
[2020-05-22] MEDS: MELATONIN 5 MG TABLETS PO SCH (22:02)
[2020-05-23] MEDS: diazePAM 5 MG TABLET PO SCH ×3 (05:30→22:51)
[2020-05-23] MEDS: diazePAM 5 MG TABLET PO PRN (09:09)
[2020-05-23] MEDS: PRENATAL VITAMINS W/ FOLIC ACID TABLET (FP) PO SCH (10:32)
[2020-05-23] MEDS: BACITRACIN 0.9 GM PACKET TP SCH ×2 (10:32→22:51)
[2020-05-23] MEDS: MENTHOL/PHENOL 1 EACH UD MM PRN (10:35)
[2020-05-23] MEDS: THIAMINE HCL 100 MG TABLET (FP) PO SCH (22:51)
[2020-05-23] MEDS: MELATONIN 5 MG TABLETS PO SCH (22:52)
[2020-05-23] MEDS: guaiFENesin 200 MG/10 ML 10 ML UNIT-DOSE CUPS PO PRN (22:53)
[2020-05-24] MEDS: diazePAM 5 MG TABLET PO SCH ×2 (05:37→17:54)
[2020-05-24] MEDS: PRENATAL VITAMINS W/ FOLIC ACID TABLET (FP) PO SCH (10:20)
[2020-05-24] MEDS: diazePAM 5 MG TABLET PO PRN (10:23)
[2020-05-24] MEDS: BACITRACIN 0.9 GM PACKET TP SCH ×2 (10:50→22:27)
[2020-05-24] MEDS: THIAMINE HCL 100 MG TABLET (FP) PO SCH (22:27)
[2020-05-24] MEDS: MELATONIN 5 MG TABLETS PO SCH (22:27)
[2020-05-25] MEDS ORDERED: diazePAM 5 MG TABLET PO ONE (06:00)
[2020-05-25 09:41] VITALS: BP 142/89; PULSE 78; TEMP 97.7
[2020-05-25] MEDS: BACITRACIN 0.9 GM PACKET TP SCH (10:05)
[2020-05-25] MEDS: PRENATAL VITAMINS W/ FOLIC ACID TABLET (FP) PO SCH (10:05)
== END 2020-05-25 12:38 | disposition other institution (70) | DRG 774 ==
LOC: YASAS 16:00 → Y3N 22:05
PROVIDERS: ADMIT Allergy & Immunology; ATTEND Allergy & Immunology
PROC: HZ2ZZZZ Detoxification Services for Substance Abuse Treatment (ICD-10-PCS; principal; 2020-05-21)
DX: F10.230 Alcohol dependence with withdrawal, uncomplicated (principal); F14.20 Cocaine dependence, uncomplicated; F12.20 Cannabis dependence, uncomplicated; F17.210 Nicotine dependence, cigarettes, uncomplicated; F31.81 Bipolar II disorder; F19.282 Other psychoactive substance dependence with psychoactive substance-induced sleep disorder; F19.24 Other psychoactive substance dependence with psychoactive substance-induced mood disorder; F41.8 Other specified anxiety disorders; D50.9 Iron deficiency anemia, unspecified; G47.00 Insomnia, unspecified; E78.5 Hyperlipidemia, unspecified; I10 Essential (primary) hypertension; J44.9 Chronic obstructive pulmonary disease, unspecified; K42.9 Umbilical hernia without obstruction or gangrene; M54.5 Low back pain; G89.29 Other chronic pain
CPT/HCPCS: 36415; 80053; 85027; 86780; C9803; U0003; U0005

== ENCOUNTER 2020-06-09 10:01 | Inpatient (IN) | payer OTHER ==
[2020-06-09 10:36] VITALS: BMI 26.5
[2020-06-09] MEDS ORDERED: MAG HYDROX/AL HYDROX/SIMETH 30 ML UNIT-DOSE CUP PO PRN (10:41)
[2020-06-09] MEDS ORDERED: MENTHOL/PHENOL 1 EACH UD MM PRN (10:41)
[2020-06-09] MEDS ORDERED: MAGNESIUM CITRATE 300 ML BOTTLE PO PRN (10:41)
[2020-06-09] MEDS ORDERED: ACETAMINOPHEN 325 MG TABLET (FP) PO PRN ×2 (10:41)
[2020-06-09] MEDS ORDERED: IBUPROFEN 400 MG TABLET (FP) PO PRN (10:41)
[2020-06-09] MEDS ORDERED: METHOCARBAMOL 500 MG TABLET PO PRN (10:41)
[2020-06-09] MEDS ORDERED: MAGNESIUM HYDROX 2400MG/30ML ORAL SUSPENSION 30 ML CUP PO PRN (10:41)
[2020-06-09] MEDS ORDERED: NICOTINE POLACRILEX 2 MG GUM BUC PRN (10:41)
[2020-06-09] MEDS ORDERED: chlordiazePOXIDE HCL 25 MG CAPSULE PO PRN (10:41)
[2020-06-09] MEDS ORDERED: BISMUTH SUBSALICYLATE 524 MG/30 ML UD PO PRN (10:41)
[2020-06-09] MEDS ORDERED: ONDANSETRON *ODT* 4 MG TABLET SL PRN (10:41)
[2020-06-09] MEDS: PRENATAL VITAMINS W/ FOLIC ACID TABLET (FP) PO SCH (11:51)
[2020-06-09] MEDS: NICOTINE 7 MG/24 HOURS TOPICAL PATCH TD SCH (11:51)
[2020-06-09] MEDS: hydrOXYzine PAMOATE 25 MG CAPSULE (FP) PO SCH ×3 (13:24→22:57)
[2020-06-09 14:52] LABS: HEMATOCRIT 35.5 % (35.4-49); HEMOGLOBIN 11.6 GM/dL (11.7-16.9); MCH 26.2 pg (25.7-33.7); MCHC 32.7 g/dl (32.0-35.9); MEAN CELL VOLUME 80.1 fl (80-96); PLATELET COUNT 365 K/MM3 (134-434); RBC 4.43 M/mm3 (4.00-5.60); RDW 13.9 % (11.9-15.9); WHITE BLOOD COUNT 3.3 K/mm3 (4.0-10.0)
[2020-06-09 14:57] LABS: CALCIUM 8.6 mg/dL (8.5-10.1)
[2020-06-09 14:58] LABS: ALBUMIN 3.7 g/dl (3.4-5.0); BLOOD UREA NITROGEN 7.6 mg/dL (7-18)
[2020-06-09 15:01] LABS: CREATININE 0.8 mg/dL (0.55-1.3)
[2020-06-09 15:02] LABS: BILIRUBIN,TOTAL 0.6 mg/dL (0.2-1)
[2020-06-09] MEDS: chlordiazePOXIDE HCL 25 MG CAPSULE PO SCH ×2 (18:02→22:58)
[2020-06-09] MEDS ORDERED: traZODone HCL 50 MG TABLET (FP) PO SCH (22:00)
[2020-06-09] MEDS ORDERED: THIAMINE HCL 100 MG TABLET (FP) PO SCH (22:00)
[2020-06-09] MEDS ORDERED: MELATONIN 5 MG TABLETS PO SCH (22:00)
[2020-06-10] MEDS: hydrOXYzine PAMOATE 25 MG CAPSULE (FP) PO SCH ×2 (05:34→10:10)
[2020-06-10] MEDS: chlordiazePOXIDE HCL 25 MG CAPSULE PO SCH ×2 (05:34→10:10)
[2020-06-10 09:05] VITALS: BP 123/74; PULSE 67; TEMP 97.8
[2020-06-10] MEDS: NICOTINE 7 MG/24 HOURS TOPICAL PATCH TD SCH (10:10)
[2020-06-10] MEDS: PRENATAL VITAMINS W/ FOLIC ACID TABLET (FP) PO SCH (10:10)
[2020-06-11] MEDS ORDERED: chlordiazePOXIDE HCL 25 MG CAPSULE PO SCH (05:00)
[2020-06-12] MEDS ORDERED: chlordiazePOXIDE HCL 10 MG CAPSULE PO PRN
[2020-06-12] MEDS ORDERED: chlordiazePOXIDE HCL 10 MG CAPSULE PO SCH (05:00)
[2020-06-13] MEDS ORDERED: chlordiazePOXIDE HCL 10 MG CAPSULE PO SCH (05:00)
[2020-06-14] MEDS ORDERED: chlordiazePOXIDE HCL 10 MG CAPSULE PO ONE (05:00)
== END 2020-06-10 10:50 | disposition left against medical advice (07) | DRG 770 ==
LOC: YASAS 10:01 → Y3N 10:55
PROVIDERS: ADMIT Allergy & Immunology; ATTEND Allergy & Immunology
PROC: HZ2ZZZZ Detoxification Services for Substance Abuse Treatment (ICD-10-PCS; principal; 2020-06-09)
DX: F10.230 Alcohol dependence with withdrawal, uncomplicated (principal); F14.20 Cocaine dependence, uncomplicated; F17.210 Nicotine dependence, cigarettes, uncomplicated; F19.282 Other psychoactive substance dependence with psychoactive substance-induced sleep disorder; F19.24 Other psychoactive substance dependence with psychoactive substance-induced mood disorder; F32.9 Major depressive disorder, single episode, unspecified; F41.8 Other specified anxiety disorders; G47.00 Insomnia, unspecified; I10 Essential (primary) hypertension; E78.5 Hyperlipidemia, unspecified; J44.9 Chronic obstructive pulmonary disease, unspecified; Z56.0 Unemployment, unspecified; Z59.0 Homelessness
CPT/HCPCS: 36415; 80053; 85027; 86780; C9803; U0003; U0005

== ENCOUNTER 2020-11-04 10:34 | Inpatient (IN) | payer OTHER ==
[2020-11-04] MEDS ORDERED: MAGNESIUM CITRATE 300 ML BOTTLE PO PRN (12:42)
[2020-11-04] MEDS ORDERED: IBUPROFEN 400 MG TABLET (FP) PO PRN (12:42)
[2020-11-04] MEDS ORDERED: NICOTINE 10 MG CARTRIDGE (INHALER) IH PRN (12:42)
[2020-11-04] MEDS ORDERED: ONDANSETRON *ODT* 4 MG TABLET SL PRN (12:42)
[2020-11-04] MEDS ORDERED: METHOCARBAMOL 500 MG TABLET PO PRN (12:42)
[2020-11-04] MEDS ORDERED: MAGNESIUM HYDROX 2400MG/30ML ORAL SUSPENSION 30 ML CUP PO PRN (12:42)
[2020-11-04] MEDS ORDERED: MENTHOL/PHENOL 1 EACH UD MM PRN (12:42)
[2020-11-04] MEDS ORDERED: MAG HYDROX/AL HYDROX/SIMETH 30 ML UNIT-DOSE CUP PO PRN (12:42)
[2020-11-04] MEDS ORDERED: ACETAMINOPHEN 325 MG TABLET (FP) PO PRN ×2 (12:42)
[2020-11-04] MEDS ORDERED: BISMUTH SUBSALICYLATE 524 MG/30 ML PO PRN (12:42)
[2020-11-04] MEDS: PRENATAL VITAMINS W/ FOLIC ACID TABLET (FP) PO SCH (14:02)
[2020-11-04] MEDS: hydrOXYzine PAMOATE 25 MG CAPSULE (FP) PO SCH ×3 (14:02→21:05)
[2020-11-04 16:22] LABS: HEMATOCRIT 33.6 % (35.4-49); HEMOGLOBIN 10.9 GM/dL (11.7-16.9); MCH 25.7 pg (25.7-33.7); MCHC 32.4 g/dl (32.0-35.9); MEAN CELL VOLUME 79.3 fl (80-96); MEAN PLT VOLUME 8.3 fl (7.5-11.1); PLATELET COUNT 332 10^3/uL (134-434); RBC 4.24 M/mm3 (4.00-5.60); RDW 14.5 % (11.9-15.9)
[2020-11-04 17:36] LABS: CALCIUM 8.8 mg/dL (8.5-10.1)
[2020-11-04 17:37] LABS: ALBUMIN 3.4 g/dl (3.4-5.0)
[2020-11-04 17:42] LABS: BILIRUBIN,TOTAL 0.6 mg/dL (0.2-1); TOT PROT 6.8 g/dl (6.4-8.2)
[2020-11-04] MEDS ORDERED: MELATONIN 5 MG TABLETS PO SCH (22:00)
[2020-11-04] MEDS ORDERED: THIAMINE HCL 100 MG TABLET (FP) PO SCH (22:00)
[2020-11-04 23:21] VITALS: TEMP 97.5
[2020-11-05] MEDS: hydrOXYzine PAMOATE 25 MG CAPSULE (FP) PO SCH ×2 (06:15→10:42)
[2020-11-05] MEDS ORDERED: ALBUTEROL SO4 HFA INHALER IH PRN (08:07)
[2020-11-05 09:17] VITALS: BP 148/88; PULSE 55
[2020-11-05] MEDS: PRENATAL VITAMINS W/ FOLIC ACID TABLET (FP) PO SCH (10:40)
[2020-11-05] MEDS ORDERED: amLODIPine BESYLATE 5 MG TABLET (FP) PO SCH (10:45)
== END 2020-11-05 11:21 | disposition home or self-care (01) | DRG 774 ==
LOC: YASAS 10:34 → Y6N 12:49 → UNDOADMIN 12:49
PROVIDERS: ADMIT Allergy & Immunology; ATTEND Allergy & Immunology
PROC: HZ2ZZZZ Detoxification Services for Substance Abuse Treatment (ICD-10-PCS; principal; 2020-11-04)
DX: F10.230 Alcohol dependence with withdrawal, uncomplicated (principal); F14.20 Cocaine dependence, uncomplicated; F19.24 Other psychoactive substance dependence with psychoactive substance-induced mood disorder; F19.282 Other psychoactive substance dependence with psychoactive substance-induced sleep disorder; F41.9 Anxiety disorder, unspecified; F32.9 Major depressive disorder, single episode, unspecified; I10 Essential (primary) hypertension; J43.9 Emphysema, unspecified; F50.9 Eating disorder, unspecified; E78.5 Hyperlipidemia, unspecified; M45.4 Ankylosing spondylitis of thoracic region; G89.29 Other chronic pain; G47.00 Insomnia, unspecified; Z56.0 Unemployment, unspecified; Z59.0 Homelessness
CPT/HCPCS: 36415; 80053; 85027; 86780; C9803; U0003; U0005